=== PATIENT | female | born 1950 | race American Indian/Alaskan Native ===

== ENCOUNTER 2017-04-28 13:12 | Outpatient (CLI) | payer MEDICARE ==
[2017-04-28] MEDS ORDERED: XYLOCAINE TOPICAL 4% TP ONE ×2 (14:38→15:00)
== END 2017-04-28 13:13 | disposition home or self-care (01) ==
LOC: WOUND 13:12
PROVIDERS: ATTEND Internal Medicine
DX: I70.238 Atherosclerosis of native arteries of right leg with ulceration of other part of lower leg (principal); L97.811 Non-pressure chronic ulcer of other part of right lower leg limited to breakdown of skin; I12.9 Hypertensive chronic kidney disease with stage 1 through stage 4 chronic kidney disease, or unspecified chronic kidney disease; N18.3 Chronic kidney disease, stage 3 (moderate); I50.9 Heart failure, unspecified; D50.8 Other iron deficiency anemias; I74.3 Embolism and thrombosis of arteries of the lower extremities; K21.0 Gastro-esophageal reflux disease with esophagitis; Z86.718 Personal history of other venous thrombosis and embolism; Z72.89 Other problems related to lifestyle
CPT/HCPCS: 97606

== ENCOUNTER 2017-05-05 11:05 | Outpatient (CLI) | payer MEDICARE ==
[2017-05-05] MEDS ORDERED: XYLOCAINE TOPICAL 2% TP ONE (12:33)
[2017-05-05] MEDS ORDERED: XYLOCAINE TOPICAL 4% TP ONE (13:00)
== END 2017-05-05 11:06 | disposition home or self-care (01) ==
LOC: WOUND 11:05
PROVIDERS: ATTEND Internal Medicine
DX: I70.235 Atherosclerosis of native arteries of right leg with ulceration of other part of foot (principal); E11.622 Type 2 diabetes mellitus with other skin ulcer; L97.811 Non-pressure chronic ulcer of other part of right lower leg limited to breakdown of skin; E11.51 Type 2 diabetes mellitus with diabetic peripheral angiopathy without gangrene; E11.22 Type 2 diabetes mellitus with diabetic chronic kidney disease; I12.9 Hypertensive chronic kidney disease with stage 1 through stage 4 chronic kidney disease, or unspecified chronic kidney disease; N18.3 Chronic kidney disease, stage 3 (moderate); I50.9 Heart failure, unspecified; D50.8 Other iron deficiency anemias; I74.3 Embolism and thrombosis of arteries of the lower extremities; K21.9 Gastro-esophageal reflux disease without esophagitis; Z86.718 Personal history of other venous thrombosis and embolism; Z89.431 Acquired absence of right foot; Z87.891 Personal history of nicotine dependence
CPT/HCPCS: 97606

== ENCOUNTER 2017-05-15 06:14 | Day surgery (SDC) | payer MEDICARE ==
[~2017-05-15 06:14] MED LIST: ANCEF/STERILE WATER 2 GM/20 ML 2 GM/20 ML SYRINGE IV NR; NACL 0.9% 1000 ML 1,000 ML IV SCH
[2017-05-15] MEDS ORDERED: NACL BACTERIOSTATIC INFILTRATI ONE (06:44)
[2017-05-15 07:13] LABS: Basophils % (Auto) 0.5 % (0.0-1.8); Eosinophils # (Auto) 0.1 K/mm3 (0.0-0.4); Eosinophils % (Auto) 1.3 % (0.0-4.3); Hematocrit 37.9 % (30.3-42.9); Hemoglobin 12.4 gm/dl (10.1-14.3); Lymphocytes # (Auto) 1.9 K/mm3 (1.2-5.4); Mean Corpuscular HGB Conc 33 % (30-34); Mean Corpuscular Hemoglobin 29 pg (28-32); Mean Corpuscular Volume 89 fl (79-97); Monocytes # (Auto) 0.5 K/mm3 (0.0-0.8); Monocytes % (Auto) 6.9 % (0.0-7.3); Platelet Count 200 K/mm3 (140-440); Red Blood Count 4.26 M/mm3 (3.65-5.03); Red Cell Distribution Width 17.6 % (13.2-15.2)
--- NOTE | 2017-05-15 07:18 | Anesthesia Consultation ---
Anesthesia Consult and Med Hx Date of service: 05/15/17 - Airway Anesthetic Teeth Evaluation: Dentures, Partials ROM Head & Neck: Adequate Mental/Hyoid Distance: Adequate Mallampati Class: Class I Intubation Access Assessment: Good - Pulmonary Exam CTA: Yes - Cardiac Exam Cardiac Exam: RRR - Pre-Operative Health Status ASA Pre-Surgery Classification: ASA3 Proposed Anesthetic Plan: General - Pulmonary Hx Smoking: Yes - Cardiovascular System Hx Hypertension: Yes Hx Peripheral Vascular Disease: Yes (s/p AAA repair, right foot gangrene) - Central Nervous System Hx Psychiatric Problems: Yes - Endocrine Hx Renal Disease: Yes (stage 3 CKD) Hx Hypothyroidism: Yes - Other Systems Hx Cancer: No
--- NOTE | 2017-05-15 07:18 | Anesthesia Day of Surgery ---
Anesthesia Day of Surgery - Day of Surgery Patient Examined: Yes Patient H&P Reviewed: Yes Patient is NPO: Yes
[2017-05-15 07:23] LABS: INR 1.07 (0.87-1.13)
[2017-05-15] MEDS ORDERED: DIPRIVAN 10 MG/ML IV ONE (07:44)
[2017-05-15] MEDS ORDERED: DILAUDID ONE (07:44)
[2017-05-15 07:57] LABS: BUN/Creatinine Ratio 18; Blood Urea Nitrogen 14 mg/dL (7-17); Calcium 9.2 mg/dL (8.4-10.2); Hemolysis Index 20
[2017-05-15] MEDS ORDERED: PEPCID IV NR (08:00)
[2017-05-15] MEDS ORDERED: NEO SYNEPHRINE/NS Syringe(OR USE) IV ONE (08:00)
[2017-05-15] MEDS ORDERED: MORPHINE IV PRN (08:00)
[2017-05-15] MEDS ORDERED: ZOFRAN IV PRN (08:00)
[2017-05-15] MEDS ORDERED: PERCOCET 5/325 PO PRN (08:00)
[2017-05-15] MEDS ORDERED: XYLOCAINE 1% 20 mL ONE (08:00)
[2017-05-15] MEDS ORDERED: VERSED IV NR (08:00)
[2017-05-15] MEDS ORDERED: NACL 0.9% IR ONE (08:47)
[2017-05-15] MEDS ORDERED: ZOFRAN ONE (08:54)
[2017-05-15] MEDS ORDERED: XYLOCAINE MPF 2% ONE (08:54)
[2017-05-15] MEDS ORDERED: SANTYL TP ONE (09:04)
--- NOTE | 2017-05-15 09:30 | Post Anesthesia Evaluation ---
- Post Anesthesia Evaluation Patient Participated: Yes Airway Patent: Yes Stable Respiratory Function: Yes Temp > 96.8F: Yes Pain Manageable: Yes Adequeate Hydration: Yes Anesthesia Complications: No
--- NOTE | 2017-05-15 09:31 | Post Anesthesia Evaluation ---
- Post Anesthesia Evaluation Patient Participated: Yes Airway Patent: Yes Stable Respiratory Function: Yes Temp > 96.8F: Yes Pain Manageable: Yes Adequeate Hydration: Yes Anesthesia Complications: No
--- NOTE | 2017-05-15 09:49 | Operative Report ---
Operative Report Operative Report: Operative note: Date: 05/15/2017 Preoperative diagnosis: Right lower leg wound Postoperative diagnosis: Same. Operation: Excisional debridement of lateral calf and heel wounds. Surgeon: Ariane Bhat. Asst.: None Anesthesia: Gen. EBL: Minimal Findings: Tissue on the right lateral calf wound surrounded by a good granulation tissue. The tissue on right heel. Indications: 66-year-old lady with right sided leg wounds undergoing wound care was noted to have increased amount of eschar on left calf wound and right heel. She is status post debridement and right TMA a few weeks ago. She was explained risks, benefits and alternatives of procedure and chose to proceed, signed informed consent. Operative details: Patient was brought to the operating room and placed in supine position. right leg was prepped and draped in sterile fashion. timeout was performed. Using a 15 blade was then sharply excisional debridement performed of the lateral calf wound down to healthy tissue. The fibula was palpated and covered with some fibrinous exudate. I decided to continue that site was chemical debridement using enzyme ointment and daily dressing changes with wound care. Right heel wound appeared to be under continuous pressure. It was also excisionally debrided using a 15 blade down to healthy soft tissue. Collagenous ointment was applied and using loss of 12 and 4 x 4's wounds were dressed with Kerlix roll. Full was used to pad and prevent further pressure on the heel ulcer.
--- NOTE | 2017-05-15 09:54 | Short Stay Summary ---
Short Stay Documentation Date of service: 05/15/17 - History Principal diagnosis: right leg wounds H&P: obtained from office - Allergies and Medications Current Medications: Allergies heparin Allergy (Verified 05/14/17 15:58) Unknown Sulfa (Sulfonamide Antibiotics) Allergy (Verified 05/14/17 15:58) Unknown Home Medications Medication Instructions Recorded Confirmed Last Taken Type Valsartan [Diovan] 160 mg PO BID tablet 02/20/17 05/15/17 05/14/17 Rx amLODIPine [Norvasc] 10 mg PO QDAY tablet 02/20/17 05/15/17 05/14/17 Rx Pantoprazole [Protonix TAB] 40 mg PO QDAY #30 tablet 03/22/17 05/15/17 05/14/17 Rx oxyCODONE /ACETAMINOPHEN [Percocet 1 tab PO Q6H PRN #30 tablet 03/22/1705/14/17 Rx 5/325 mg] Furosemide [Lasix] 40 mg PO DAILY PRN 04/22/17 05/15/17 2 Weeks Ago History ~05/01/17 Gabapentin [Neurontin] 100 mg PO BID 04/22/17 05/15/17 05/14/17 History Hyoscyamine Sulfate [Hyoscyamine 0.125 mg PO Q6H PRN 04/22/17 05/15/17 05/14/17 History Rapdis 0.125 mg] Labetalol [Normodyne TAB] 100 mg PO BID 04/22/17 05/15/17 05/14/17 History NIFEdipine [Nifedipine ER] 60 mg PO DAILY 04/22/17 05/15/17 05/15/17 05:10 History Oxybutynin Chloride [Ditropan Xl] 10 mg PO QDAY 04/22/17 05/15/17 05/14/17 History Doxycycline [Vibramycin CAP] 100 mg PO BID capsule 04/25/17 05/15/17 05/14/17 Rx Amoxicillin/Potassium Clav 1 each PO TID 05/15/17 05/15/17 05/14/17 History [Augmentin 500-125 Tablet] Carvedilol [Carvedilol] 25 mg PO DAILY 05/15/17 05/15/17 05/15/17 05:10 History Active Medications Famotidine (Pepcid) 20 mg IV PREOP NR Stop: 05/15/17 21:00 Last Admin: 05/15/17 07:41 Dose: 20 mg Cefazolin Sodium (Ancef/Sterile Water 2 Gm/20 Ml) 2 gm in 20 mls @ 80 mls/hr IV PREOP NR PRN Reason: Protocol Stop: 05/15/17 23:59 Sodium Chloride (Nacl 0.9% 1000 Ml) 1,000 mls @ 42 mls/hr IV DIRECT [facility] Last Admin: 05/15/17 06:55 Dose: 42 mls/hr Midazolam HCl (Versed) 2 mg IV PREOP NR Stop: 05/15/17 23:59 Last Admin: 05/15/17 07:43 Dose: 2 mg Morphine Sulfate (Morphine) 2 mg IV Q10MIN PRN PRN Reason: Pain, Moderate (4-6) Stop: 05/15/17 15:00 Last Admin: 05/15/17 09:39 Dose: 2 mg Ondansetron HCl (Zofran) 4 mg IV ONCE PRN PRN Reason: Nausea And Vomiting Oxycodone/Acetaminophen (Percocet 5/325) 1 tab PO ONCE PRN PRN Reason: Pain, Moderate (4-6) - Brief post op/procedure progress note Date of procedure: 05/15/17 Pre-op diagnosis: rigth leg wounds Post-op diagnosis: same Procedure: sharp excisional debridement of right calf and heel wounds. Anesthesia: GETA Findings: necrotic tissues covering right leg wounds. right TMA well healed. Surgeon: TAYLA PRIETO Estimated blood loss: minimal Condition: stable - Hospital course Hospital course: uneventful - Disposition Condition at discharge: Good Disposition: DC-01 TO HOME OR SELFCARE Short Stay Discharge Plan Activity: advance as tolerated Diet: regular Wound: other (dressing changes daily with collagenase heel and calf.) Additional Instructions: Dressing changes daily with collagenase ointment to right lateral calf wound and heel wound. Provide padding under her right ankle to prevent further pressure on right heel ulcer. Ambulate as tolerated Follow up with: DINA CASTRO MD [Primary Care Provider] - 7 Days TAYLA PRIETO DO [Staff Physician] - 14 Days
[2017-05-15 12:03] VITALS: BP 138/60
== END 2017-05-15 11:09 | disposition home or self-care (01) ==
LOC: OR 06:14
PROVIDERS: ATTEND Surgery Vascular Surgery
DX: I70.261 Atherosclerosis of native arteries of extremities with gangrene, right leg (principal); I70.234 Atherosclerosis of native arteries of right leg with ulceration of heel and midfoot; I13.0 Hypertensive heart and chronic kidney disease with heart failure and stage 1 through stage 4 chronic kidney disease, or unspecified chronic kidney disease; N18.3 Chronic kidney disease, stage 3 (moderate); I50.9 Heart failure, unspecified; E03.9 Hypothyroidism, unspecified; B19.20 Unspecified viral hepatitis C without hepatic coma; F32.9 Major depressive disorder, single episode, unspecified; F17.200 Nicotine dependence, unspecified, uncomplicated; Z79.899 Other long term (current) drug therapy; Z98.84 Bariatric surgery status; Z98.890 Other specified postprocedural states; Z98.51 Tubal ligation status; Z88.8 Allergy status to other drugs, medicaments and biological substances; Z88.2 Allergy status to sulfonamides; Z86.718 Personal history of other venous thrombosis and embolism; Z79.01 Long term (current) use of anticoagulants
CPT/HCPCS: 11043; 11046; 36415; 80048; 85025; 85610; J0690; J1170; J2250; J2270; J2370; J2405; J2704; J7030

== ENCOUNTER 2017-06-05 10:49 | Outpatient (CLI) | payer MEDICARE ==
[2017-06-05] MEDS ORDERED: XYLOCAINE TOPICAL 4% TP ONE ×2 (11:30→11:34)
== END 2017-06-05 10:50 | disposition home or self-care (01) ==
LOC: WOUND 10:49
PROVIDERS: ATTEND Nurse Practitioner
DX: L97.811 Non-pressure chronic ulcer of other part of right lower leg limited to breakdown of skin (principal); L89.890 Pressure ulcer of other site, unstageable; I74.3 Embolism and thrombosis of arteries of the lower extremities; I70.261 Atherosclerosis of native arteries of extremities with gangrene, right leg; S91.311D Laceration without foreign body, right foot, subsequent encounter; K21.9 Gastro-esophageal reflux disease without esophagitis; I13.0 Hypertensive heart and chronic kidney disease with heart failure and stage 1 through stage 4 chronic kidney disease, or unspecified chronic kidney disease; I50.9 Heart failure, unspecified; N18.3 Chronic kidney disease, stage 3 (moderate); I71.4 Abdominal aortic aneurysm, without rupture; Z89.421 Acquired absence of other right toe(s); Z86.718 Personal history of other venous thrombosis and embolism; Z90.49 Acquired absence of other specified parts of digestive tract; F17.200 Nicotine dependence, unspecified, uncomplicated; X58.XXXD Exposure to other specified factors, subsequent encounter; Z72.89 Other problems related to lifestyle
CPT/HCPCS: 97606

== ENCOUNTER 2017-06-12 11:10 | Outpatient (CLI) | payer MEDICARE ==
[2017-06-12] MEDS ORDERED: XYLOCAINE TOPICAL 4% TP ONE (12:36)
== END 2017-06-12 11:11 | disposition home or self-care (01) ==
LOC: WOUND 11:10
PROVIDERS: ATTEND Nurse Practitioner
DX: I70.238 Atherosclerosis of native arteries of right leg with ulceration of other part of lower leg (principal); L97.811 Non-pressure chronic ulcer of other part of right lower leg limited to breakdown of skin; L89.610 Pressure ulcer of right heel, unstageable; S91.311D Laceration without foreign body, right foot, subsequent encounter; I13.0 Hypertensive heart and chronic kidney disease with heart failure and stage 1 through stage 4 chronic kidney disease, or unspecified chronic kidney disease; I50.9 Heart failure, unspecified; N18.3 Chronic kidney disease, stage 3 (moderate); K21.0 Gastro-esophageal reflux disease with esophagitis; F17.200 Nicotine dependence, unspecified, uncomplicated; Z86.718 Personal history of other venous thrombosis and embolism; Z89.421 Acquired absence of other right toe(s); Z90.49 Acquired absence of other specified parts of digestive tract; Z72.89 Other problems related to lifestyle; X58.XXXD Exposure to other specified factors, subsequent encounter
CPT/HCPCS: 97606

== ENCOUNTER 2017-06-19 11:04 | Outpatient (CLI) | payer MEDICARE ==
[2017-06-19] MEDS ORDERED: XYLOCAINE TOPICAL 4% TP ONE ×2 (11:57→12:08)
== END 2017-06-19 11:05 | disposition home or self-care (01) ==
LOC: WOUND 11:04
PROVIDERS: ATTEND Surgery
DX: I70.238 Atherosclerosis of native arteries of right leg with ulceration of other part of lower leg (principal); L97.811 Non-pressure chronic ulcer of other part of right lower leg limited to breakdown of skin; L89.610 Pressure ulcer of right heel, unstageable; S91.311D Laceration without foreign body, right foot, subsequent encounter; I13.0 Hypertensive heart and chronic kidney disease with heart failure and stage 1 through stage 4 chronic kidney disease, or unspecified chronic kidney disease; I50.9 Heart failure, unspecified; N18.3 Chronic kidney disease, stage 3 (moderate); K21.0 Gastro-esophageal reflux disease with esophagitis; F17.200 Nicotine dependence, unspecified, uncomplicated; Z90.49 Acquired absence of other specified parts of digestive tract; Z89.421 Acquired absence of other right toe(s); Z86.718 Personal history of other venous thrombosis and embolism; Z72.89 Other problems related to lifestyle; X58.XXXD Exposure to other specified factors, subsequent encounter
CPT/HCPCS: 97606; G0463

== ENCOUNTER 2017-06-26 10:43 | Outpatient (CLI) | payer MEDICARE ==
[2017-06-26] MEDS ORDERED: XYLOCAINE TOPICAL 4% TP ONE ×2 (11:00→11:17)
== END 2017-06-26 10:44 | disposition home or self-care (01) ==
LOC: WOUND 10:43
PROVIDERS: ATTEND Nurse Practitioner
DX: I70.261 Atherosclerosis of native arteries of extremities with gangrene, right leg (principal); L97.811 Non-pressure chronic ulcer of other part of right lower leg limited to breakdown of skin; L89.610 Pressure ulcer of right heel, unstageable; S91.311D Laceration without foreign body, right foot, subsequent encounter; I13.0 Hypertensive heart and chronic kidney disease with heart failure and stage 1 through stage 4 chronic kidney disease, or unspecified chronic kidney disease; I50.9 Heart failure, unspecified; N18.3 Chronic kidney disease, stage 3 (moderate); K21.0 Gastro-esophageal reflux disease with esophagitis; I74.3 Embolism and thrombosis of arteries of the lower extremities; F17.200 Nicotine dependence, unspecified, uncomplicated; Z89.421 Acquired absence of other right toe(s); Z86.718 Personal history of other venous thrombosis and embolism; Z90.49 Acquired absence of other specified parts of digestive tract; Z72.89 Other problems related to lifestyle; X58.XXXD Exposure to other specified factors, subsequent encounter
CPT/HCPCS: 97606

== ENCOUNTER 2017-07-03 11:07 | Outpatient (CLI) | payer MEDICARE ==
[2017-07-03] MEDS ORDERED: XYLOCAINE TOPICAL 4% TP ONE (11:20)
[2017-07-03] MEDS ORDERED: NACL 0.9% IR PRN (11:20)
== END 2017-07-03 11:08 | disposition home or self-care (01) ==
LOC: WOUND 11:07
PROVIDERS: ATTEND Nurse Practitioner
DX: T87.89 Other complications of amputation stump (principal); I70.238 Atherosclerosis of native arteries of right leg with ulceration of other part of lower leg; L97.811 Non-pressure chronic ulcer of other part of right lower leg limited to breakdown of skin; L89.890 Pressure ulcer of other site, unstageable; D50.8 Other iron deficiency anemias; I13.0 Hypertensive heart and chronic kidney disease with heart failure and stage 1 through stage 4 chronic kidney disease, or unspecified chronic kidney disease; N18.9 Chronic kidney disease, unspecified; I73.9 Peripheral vascular disease, unspecified; K21.9 Gastro-esophageal reflux disease without esophagitis; F17.200 Nicotine dependence, unspecified, uncomplicated; Z86.718 Personal history of other venous thrombosis and embolism; Z72.89 Other problems related to lifestyle; Y83.5 Amputation of limb(s) as the cause of abnormal reaction of the patient, or of later complication, without mention of misadventure at the time of the procedure
CPT/HCPCS: 99214; G0463

== ENCOUNTER 2018-01-15 14:30 | Inpatient (IN) | payer MEDICARE ==
[2018-01-15] MEDS ORDERED: LASIX IV ONE (17:15)
[2018-01-15 17:42] LABS: Basophils # (Auto) 0.1 K/mm3 (0.0-0.1); Basophils % (Auto) 0.6 % (0.0-1.8); Eosinophils # (Auto) 0.2 K/mm3 (0.0-0.4); Eosinophils % (Auto) 1.2 % (0.0-4.3); Hematocrit 38.6 % (30.3-42.9); Hemoglobin 13.2 gm/dl (10.1-14.3); Lymphocytes # (Auto) 2.2 K/mm3 (1.2-5.4); Lymphocytes % (Auto) 16.7 % (13.4-35.0); Mean Corpuscular HGB Conc 34 % (30-34); Mean Corpuscular Hemoglobin 33 pg (28-32); Mean Corpuscular Volume 97 fl (79-97); Monocytes # (Auto) 0.5 K/mm3 (0.0-0.8); Platelet Count 149 K/mm3 (140-440); Red Blood Count 3.99 M/mm3 (3.65-5.03)
[2018-01-15 18:09] LABS: Alanine Aminotransferase 76 units/L (7-56); Albumin 3.5 g/dL (3.9-5); BUN/Creatinine Ratio 30; Blood Urea Nitrogen 30 mg/dL (7-17); Calcium 8.8 mg/dL (8.4-10.2); Hemolysis Index 6
[2018-01-15] MEDS ORDERED: BABY ASPIRIN PO ONE (19:22)
--- NOTE | 2018-01-15 19:22 | Emergency Department Report ---
HPI - General Chief Complaint: Dizziness Time Seen by Provider: 01/15/18 16:52 - HPI HPI: The patient's is a 67-year-old female whom presents for evaluation of chest pain. The patient reports 1 week of midsternal pounding in quality chest pain on and off, mild in severity, exacerbated with deep breaths, and associated with dyspnea. She also has experienced episodes of dizziness. The patient denies fever, neck pain, parasthesias, dyspnea, cough, hemoptysis, syncope, unilateral leg swelling, calf muscle pain. Patient also denies cocaine or other stimulant use, history of DVT or PE, recent immobilization, or history of cancer. ED Past Medical Hx - Past Medical History Previous Medical History?: Yes Hx Hypertension: Yes Hx Congestive Heart Failure: Yes Hx Deep Vein Thrombosis: No Hx Renal Disease: Yes (CKD, stage 3) Additional medical history: h/o C-DIFF, RT BKA 2018,anemia with blood transfusion - Surgical History Past Surgical History?: Yes Hx Pacemaker: No Hx Internal Defibrillator: No Hx Cholecystectomy: Yes Hx Appendectomy: Yes Additional Surgical History: Endovascular aortic stent graft, femoral femoral bypass, IVC filter - Social History Smoking Status: Current Every Day Smoker - Medications Home Medications: Home Medications Medication Instructions Recorded Confirmed Last Taken Type Pantoprazole [Protonix TAB] 40 mg PO QDAY #30 tablet 03/22/17 12/03/17 12/02/17 Rx Hyoscyamine Sulfate [Hyoscyamine 0.125 mg PO Q6H PRN 04/22/17 12/03/17 12/02/17 History Rapdis 0.125 mg] Oxybutynin Chloride [Ditropan Xl] 10 mg PO DAILY 04/22/17 12/03/17 12/02/17 History Ferrous Sulfate [Feosol 325 MG tab] 325 mg PO BID tablet 07/18/17 12/03/17 Rx Hydrochlorothiazide [HCTZ] 12.5 mg PO QDAY capsule 07/18/17 12/03/17 Unknown Rx Valsartan [Diovan] 160 mg PO QDAY tablet 07/18/17 12/03/17 12/02/17 Rx Carvedilol [Coreg] 12.5 mg PO BID #60 tablet 12/05/17 Unknown Rx Oxycodone HCl/Acetaminophen 1 each PO Q6HR PRN #15 tablet 12/05/17 Unknown Rx [Percocet 10/325 mg] Polyethylene Glycol 3350 [Miralax 17 gm PO BID PRN #60 powd.pack 12/05/17 Unknown Rx 3350] Sennosides Tab [Senokot] 8.6 mg PO Q12HR #60 tablet 12/05/17 Unknown Rx ED Review of Systems ROS: Stated complaint: LIGHT HEAD SHORT OF BREATH Other details as noted in HPI Constitutional: denies: fever ENT: denies: throat or neck pain Respiratory: denies: cough reports shortness of breath Cardiovascular: reports chest pain Endocrine: denies unexplained weight loss or gain Gastrointestinal: denies: abdominal pain, nausea Genitourinary: denies: dysuria Musculoskeletal: denies: leg swelling Skin: denies: rash Neurological: denies: headache Hematological/Lymphatic: denies: easy bleeding or easy bruising Psych: denies sadness or hopelessness Physical Exam - Physical Exam Vital Signs: Vital Signs 01/15/18 01/15/18 01/15/18 14:52 16:30 17:00 Temperature 98.1 F Pulse Rate 89 82 81 Respiratory 16 10 L 18 Rate Blood Pressure 118/62 130/72 137/72 O2 Sat by Pulse 97 Oximetry Physical Exam: General: well-nourished, well-developed, no acute distress Head: Normocephalic, atraumatic Eyes: normal sclera ENT: Mucous membranes are pink and moist Neck: trachea midline, neck supple, No neck stiffness, no cervical adenopathy Respiratory: Breath sounds equal bilaterally, no wheezing, rales, or rhonchi Cardio: S1 and S2 present, no murmurs, rubs, gallops, capillary refill is brisk Abdomen: Normoactive bowel sounds, soft abdomen, no rigidity, no guarding or rebound tenderness Chest WALL/Back: No tenderness to palpation of the chest wall, no CVA tenderness with percussion Musc: 1+ pitting edema of the leg Skin: No rash Neuro: no facial drooping, normal speech Psych: Normal affect ED Course Vital Signs 01/15/18 01/15/18 01/15/18 14:52 16:30 17:00 Temperature 98.1 F Pulse Rate 89 82 81 Respiratory 16 10 L 18 Rate Blood Pressure 118/62 130/72 137/72 O2 Sat by Pulse 97 Oximetry ED Medical Decision Making - Lab Data Result diagrams: 01/15/18 17:22 01/15/18 17:22 - Medical Decision Making The patient was seen and examined by myself. The patient is placed on a radiographer cardiac catheterization and continuous pulse ox. On initial evaluation, the patient was found to be in no distress. EKG was negative for findings suggestive of acute cardiac infarct. The patient is given pain medicine. Labs and imaging are obtained. Chest x-ray revealed a right lower lobe linear atelectasis. Lab results revealed elevated BNP of greater than 1000, and mild leukocytosis, there is a 30 , and otherwise labs were non-revealing. The patient was reevaluated and reported that their symptoms were improved. As the patient has chest pain and risk factors for development of acute coronary event, the patient will be admitted for close cardiopulmonary monitoring, serial troponins, and evaluation by cardiology. The physician on-call was contacted. They presented to the emergency department and evaluated the patient. They agreed to admit the patient. The ED admit order was placed. The patient was admitted in guarded condition. Critical care attestation.: If time is entered above; I have spent that time in minutes in the direct care of this critically ill patient, excluding procedure time. ED Disposition Clinical Impression: Acute chest pain, Elevated LFTs, Elevated troponin I level CHF (congestive heart failure) Qualifiers: Heart failure type: systolic Heart failure chronicity: acute on chronic Qualified Code(s): I50.23 - Acute on chronic systolic (congestive) heart failure Disposition: OP ADMIT IP TO THIS HOSP Is pt being admited?: Yes Does the pt Need Aspirin: Yes Condition: Fair Time of Disposition: 19:22
--- NOTE | 2018-01-15 19:31 | XRay Report ---
FINAL REPORT EXAM: XR CHEST 1V AP HISTORY: chest pain TECHNIQUE: AP portable view of the chest PRIORS: CXR 02/01/2017 FINDINGS: Lines, tubes, and devices: N/A Lungs and pleura: Trachea is normal in position. Minimal increased markings in the right base are noted suggesting mild atelectasis. Lungs are otherwise clear of consolidation, pleural effusion, vascular congestion, or pneumothorax. Cardiomediastinal silhouette: Cardiac and mediastinal silhouettes are stable. Calcification of the aortic arch is again noted. Other: Bony structures are intact. IMPRESSION: Minimal linear atelectasis in the right base is new
[2018-01-15] MEDS ORDERED: SODIUM CHLORIDE FLUSH SYRINGE 10 ML IV PRN (22:45)
[2018-01-15] MEDS ORDERED: TYLENOL PO PRN (22:45)
[2018-01-15] MEDS ORDERED: ZOFRAN IV PRN (22:45)
[2018-01-15] MEDS ORDERED: MORPHINE IV PRN (22:45)
[2018-01-15] MEDS ORDERED: PERCOCET 5/325 PO PRN (22:45)
--- NOTE | 2018-01-15 22:45 | History and Physical Report ---
History of Present Illness Date of examination: 01/15/18 Date of admission: 01/15/18 19:22 Medications and Allergies Allergies Allergy/AdvReac Type Severity Reaction Status Date / Time heparin Allergy Unknown Verified 05/14/17 15:58 Sulfa (Sulfonamide Allergy Unknown Verified 05/14/17 15:58 Antibiotics) Home Medications Medication Instructions Recorded Confirmed Last Taken Type Pantoprazole [Protonix TAB] 40 mg PO QDAY #30 tablet 03/22/17 12/03/17 12/02/17 Rx Hyoscyamine Sulfate [Hyoscyamine 0.125 mg PO Q6H PRN 04/22/17 12/03/17 12/02/17 History Rapdis 0.125 mg] Oxybutynin Chloride [Ditropan Xl] 10 mg PO DAILY 04/22/17 12/03/17 12/02/17 History Ferrous Sulfate [Feosol 325 MG tab] 325 mg PO BID tablet 07/18/17 12/03/17 Rx Hydrochlorothiazide [HCTZ] 12.5 mg PO QDAY capsule 07/18/17 12/03/17 Unknown Rx Valsartan [Diovan] 160 mg PO QDAY tablet 07/18/17 12/03/17 12/02/17 Rx Carvedilol [Coreg] 12.5 mg PO BID #60 tablet 12/05/17 Unknown Rx Oxycodone HCl/Acetaminophen 1 each PO Q6HR PRN #15 tablet 12/05/17 Unknown Rx [Percocet 10/325 mg] Polyethylene Glycol 3350 [Miralax 17 gm PO BID PRN #60 powd.pack 12/05/17 Unknown Rx 3350] Sennosides Tab [Senokot] 8.6 mg PO Q12HR #60 tablet 12/05/17 Unknown Rx Exam - Constitutional Vitals: Temp Pulse Resp BP Pulse Ox 98.5 F 89 20 145/76 95 01/15/18 21:39 01/15/18 21:39 01/15/18 21:39 01/15/18 21:39 01/15/18 21:39 Results - Labs CBC & Chem 7: 01/15/18 17:22 01/15/18 17:22 Labs: Laboratory Last Values WBC 13.0 K/mm3 (4.5-11.0) H 01/15/18 17:22 RBC 3.99 M/mm3 (3.65-5.03) 01/15/18 17:22 Hgb 13.2 gm/dl (10.1-14.3) 01/15/18 17:22 Hct 38.6 % (30.3-42.9) 01/15/18 17:22 MCV 97 fl (79-97) 01/15/18 17:22 MCH 33 pg (28-32) H 01/15/18 17:22 MCHC 34 % (30-34) 01/15/18 17:22 RDW 16.0 % (13.2-15.2) H 01/15/18 17:22 Plt Count 149 K/mm3 (140-440) 01/15/18 17:22 Lymph % (Auto) 16.7 % (13.4-35.0) 01/15/18 17:22 [place] % (Auto) 4.0 % (0.0-7.3) 01/15/18 17:22 Eos % (Auto) 1.2 % (0.0-4.3) 01/15/18 17:22 Baso % (Auto) 0.6 % (0.0-1.8) 01/15/18 17:22 Lymph # 2.2 K/mm3 (1.2-5.4) 01/15/18 17:22 [place] # 0.5 K/mm3 (0.0-0.8) 01/15/18 17:22 Eos # 0.2 K/mm3 (0.0-0.4) 01/15/18 17:22 Baso # 0.1 K/mm3 (0.0-0.1) 01/15/18 17:22 Seg Neutrophils % 77.5 % (40.0-70.0) H 01/15/18 17:22 Seg Neutrophils # 10.0 K/mm3 (1.8-7.7) H 01/15/18 17:22 Sodium 144 mmol/L (137-145) 01/15/18 17:22 Potassium 3.4 mmol/L (3.6-5.0) L 01/15/18 17:22 Chloride 113.6 mmol/L (98-107) H 01/15/18 17:22 Carbon Dioxide 14 mmol/L (22-30) L 01/15/18 17:22 Anion Gap 20 mmol/L 01/15/18 17:22 BUN 30 mg/dL (7-17) H 01/15/18 17:22 Creatinine 1.0 mg/dL (0.7-1.2) 01/15/18 17:22 Estimated GFR > 60 ml/min 01/15/18 17:22 BUN/Creatinine Ratio 30 % 01/15/18 17:22 Glucose 104 mg/dL (65-100) H 01/15/18 17:22 Calcium 8.8 mg/dL (8.4-10.2) 01/15/18 17:22 Total Bilirubin 0.20 mg/dL (0.1-1.2) 01/15/18 17:22 AST 70 units/L (5-40) H 01/15/18 17:22 ALT 76 units/L (7-56) H 01/15/18 17:22 Alkaline Phosphatase 170 units/L (35-129) H 01/15/18 17:22 NT-Pro-B Natriuret Pep 1840 pg/mL (0-900) H 01/15/18 17:22 Total Protein 7.4 g/dL (6.3-8.2) 01/15/18 17:22 Albumin 3.5 g/dL (3.9-5) L 01/15/18 17:22 Albumin/Globulin Ratio 0.9 % 01/15/18 17:22
[2018-01-15] MEDS ORDERED: NON-FORMULARY (Oxycodone Hcl/Acetaminophen [Percocet 10/325 Mg] 1 EACH) PO PRN (22:50)
[2018-01-15] MEDS ORDERED: MIRALAX 3350 PO PRN (22:50)
[2018-01-15] MEDS ORDERED: NON-FORMULARY (Hyoscyamine Sulfate [Hyoscyamine Rapdis 0.125 Mg] 0.125 MG) PO PRN (22:50)
[2018-01-15] MEDS ORDERED: LEVSIN SL SL PRN (22:56)
[2018-01-15] MEDS ORDERED: NACL 0.9% 1000 ML 1,000 ML IV SCH (23:00)
[2018-01-15] MEDS: COREG PO SCH (23:16)
[2018-01-15] MEDS: PERCOCET 5/325 PO PRN (23:17)
[2018-01-15] MEDS: ROXICODONE PO PRN (23:18)
[2018-01-16 05:50] LABS: Basophils % (Auto) 0.3 % (0.0-1.8); Eosinophils # (Auto) 0.1 K/mm3 (0.0-0.4); Eosinophils % (Auto) 1.2 % (0.0-4.3); Hematocrit 36.8 % (30.3-42.9); Hemoglobin 12.3 gm/dl (10.1-14.3); Lymphocytes # (Auto) 1.9 K/mm3 (1.2-5.4); Lymphocytes % (Auto) 21.6 % (13.4-35.0); Mean Corpuscular HGB Conc 33 % (30-34); Mean Corpuscular Hemoglobin 32 pg (28-32); Mean Corpuscular Volume 97 fl (79-97); Monocytes # (Auto) 0.5 K/mm3 (0.0-0.8); Monocytes % (Auto) 5.5 % (0.0-7.3); Platelet Count 140 K/mm3 (140-440); Red Blood Count 3.79 M/mm3 (3.65-5.03); Red Cell Distribution Width 15.8 % (13.2-15.2)
[2018-01-16 06:31] LABS: Alanine Aminotransferase 311 units/L (7-56); Albumin 3.5 g/dL (3.9-5); BUN/Creatinine Ratio 28; Blood Urea Nitrogen 28 mg/dL (7-17); Calcium 8.8 mg/dL (8.4-10.2); Hemolysis Index 2
--- NOTE | 2018-01-16 07:14 | Event Note ---
Date: 01/15/18 See H/p in reports
[2018-01-16 07:35] LABS: Chol/HDL Ratio 2.89 %
[2018-01-16] MEDS ORDERED: K-DUR PO NR (07:42)
[2018-01-16] MEDS ORDERED: NACL 0.9% 1000 ML 1,000 ML IV SCH (08:00)
[2018-01-16] MEDS ORDERED: LEXISCAN IV ONE ×2 (09:51→09:56)
[2018-01-16] MEDS ORDERED: NON-FORMULARY (Oxybutynin Chloride [Ditropan Xl] 10 MG) PO SCH (10:00)
[2018-01-16] MEDS ORDERED: PEPCID IV SCH (10:00)
--- NOTE | 2018-01-16 11:09 | History and Physical Report ---
CHIEF COMPLAINT: Left-sided chest pain for 1 day. HISTORY OF PRESENT ILLNESS: The patient is a 67-year-old black female who comes in for dizziness and left-sided chest pain of one day duration. Chest pain is dull in character. No diaphoresis, no palpitations, no shortness of breath. No recent travel. PAST MEDICAL HISTORY: Significant for hypertension, congestive heart failure, chronic kidney disease, right above-knee amputation for peripheral vascular disease secondary to smoking, anemia. PAST SURGICAL HISTORY: Cholecystectomy, appendectomy, endovascular aortic stent graft, femoral-femoral bypass, IVC filter and right above-knee amputation. SOCIAL HISTORY: Smokes about a pack a day. CURRENT MEDICATIONS: On chart. REVIEW OF SYSTEMS: Significant for chest pain and dizziness. Otherwise, 14-point review of systems negative. PHYSICAL EXAMINATION: GENERAL: Elderly female, cooperative during examination. VITAL SIGNS: Blood pressure is 145/71, temperature is 97.7, pulse is 62, respirations 18. HEENT: Unremarkable. Pupils equal and reactive. NECK: Supple, no lymphadenopathy, no thyromegaly. LUNGS: Clear to auscultation and percussion. Good air entry. CARDIOVASCULAR: S1, S2 heard. No gallop, no murmur, no rub. Apical impulse in left fifth intercostal space and midclavicular line. ABDOMEN: Soft and benign. No hepatosplenomegaly. No guarding, no rigidity. Hernial orifices are normal. EXTREMITIES: Right above-knee amputation. Pulses are weak in the left lower extremity. SKIN: Normal. CENTRAL NERVOUS SYSTEM: Alert and oriented x 4, nonfocal exam. LABORATORY DATA: Significant for white count of 13,000, H and H of 13.2 and 38.6, platelet count of 149,000. Sodium is 144, potassium is 3.4, BUN and creatinine is 30 and 1.0. AST and ALT are slightly high 70 and 76. BNP is 1840. Lipid profile normal. ASSESSMENT AND PLAN: 1. Chest pain, rule out myocardial infarction, chest pain protocol. 2. Hypokalemia, supplemented. 3. Dehydration, IV fluids. 4. Transaminitis. Acute hepatitis profile ordered. 5. Elevated BNP, possible CHF. Echocardiogram ordered. 6. Gastroesophageal reflux disease. Continue Protonix. 7. Hypertension. Continue Coreg and valsartan. 8. Anemia. Continue iron supplements. 9. Deep venous thrombosis prophylaxis, Lovenox 40 mg subcutaneous daily. [facility]# [id number] PHIL/MEHDI
[2018-01-16] MEDS: DIOVAN PO SCH (12:16)
[2018-01-16] MEDS: HCTZ PO SCH (12:17)
[2018-01-16] MEDS: DITROPAN XL PO SCH (12:17)
[2018-01-16] MEDS: SODIUM CHLORIDE FLUSH SYRINGE 10 ML IV SCH ×2 (12:18→22:02)
[2018-01-16] MEDS: COREG PO SCH ×2 (12:18→22:01)
[2018-01-16] MEDS: PROTONIX PO SCH (12:18)
[2018-01-16] MEDS: SENOKOT PO SCH ×2 (12:18→22:02)
[2018-01-16] MEDS ORDERED: APRESOLINE IV PRN (12:58)
[2018-01-16] MEDS: ROXICODONE PO PRN ×2 (14:15→19:46)
--- NOTE | 2018-01-16 14:42 | Consultation ---
History of Present Illness Consult date: 01/16/18 Consult reason: shortness of breath, other (Dizziness) History of present illness: This is a 67 year old woman with multiple medical problems. There is no history of coronary artery disease. Patient presented to this hospital with complaints of shortness of breath and dizziness, intermittent for several weeks. There were no reports of chest pain or palpitations. There were no reports of syncope. Initial workup revealed laboratory abnormality of liver transaminases. Chest x-ray shows no evidence of interstitial edema. She was admitted for further evaluation and underwent a persantine thallium test and echocardiogram ordered by the primary team. Medications and Allergies Allergies Allergy/AdvReac Type Severity Reaction Status Date / Time heparin Allergy Unknown Verified 05/14/17 15:58 Sulfa (Sulfonamide Allergy Unknown Verified 05/14/17 15:58 Antibiotics) Home Medications Medication Instructions Recorded Confirmed Last Taken Type Pantoprazole [Protonix TAB] 40 mg PO QDAY #30 tablet 03/22/17 12/03/17 12/02/17 Rx Hyoscyamine Sulfate [Hyoscyamine 0.125 mg PO Q6H PRN 04/22/17 12/03/17 12/02/17 History Rapdis 0.125 mg] Oxybutynin Chloride [Ditropan Xl] 10 mg PO DAILY 04/22/17 12/03/17 12/02/17 History Ferrous Sulfate [Feosol 325 MG tab] 325 mg PO BID tablet 07/18/17 12/03/17 Rx Hydrochlorothiazide [HCTZ] 12.5 mg PO QDAY capsule 07/18/17 12/03/17 Unknown Rx Valsartan [Diovan] 160 mg PO QDAY tablet 07/18/17 12/03/17 12/02/17 Rx Carvedilol [Coreg] 12.5 mg PO BID #60 tablet 12/05/17 Unknown Rx Oxycodone HCl/Acetaminophen 1 each PO Q6HR PRN #15 tablet 12/05/17 Unknown Rx [Percocet 10/325 mg] Polyethylene Glycol 3350 [Miralax 17 gm PO BID PRN #60 powd.pack 12/05/17 Unknown Rx 3350] Sennosides Tab [Senokot] 8.6 mg PO Q12HR #60 tablet 12/05/17 Unknown Rx Active Meds: Active Medications Acetaminophen (Tylenol) 650 mg PO Q4H PRN PRN Reason: Pain MILD(1-3)/Fever >100.5/[place] Carvedilol (Coreg) 12.5 mg PO BID [facility] Last Admin: 01/16/18 12:18 Dose: 12.5 mg Hydralazine HCl (Apresoline) 20 mg IV Q4H PRN PRN Reason: Hypertension Hydrochlorothiazide (Hctz) 12.5 mg PO QDAY [facility] Last Admin: 01/16/18 12:17 Dose: 12.5 mg Hyoscyamine (Levsin Sl) 0.125 mg SL Q6H PRN PRN Reason: Spasms Sodium Chloride (Nacl 0.9% 1000 Ml) 1,000 mls @ 75 mls/hr IV DIRECT [facility] Morphine Sulfate (Morphine) 2 mg IV Q4H PRN PRN Reason: Pain, Moderate (4-6) Ondansetron HCl (Zofran) 4 mg IV Q8H PRN PRN Reason: Nausea And Vomiting Oxybutynin Chloride (Ditropan Xl) 10 mg PO QDAY [facility] Last Admin: 01/16/18 12:17 Dose: 10 mg Oxycodone HCl (Roxicodone) 5 mg PO Q6H PRN PRN Reason: Pain, Moderate (4-6) Last Admin: 01/16/18 14:15 Dose: 5 mg Oxycodone/Acetaminophen (Percocet 5/325) 1 tab PO Q6H PRN PRN Reason: Pain, Moderate (4-6) Last Admin: 01/15/18 23:17 Dose: 1 tab Pantoprazole Sodium (Protonix) 40 mg PO QDAY [facility] Last Admin: 01/16/18 12:18 Dose: 40 mg Polyethylene Glycol (Miralax 3350) 17 gm PO BID PRN PRN Reason: Constipation Senna (Senokot) 8.6 mg PO Q12HR [facility] Last Admin: 01/16/18 12:18 Dose: Not Given Sodium Chloride (Sodium Chloride Flush Syringe 10 Ml) 10 ml IV BID [facility] Last Admin: 01/16/18 12:18 Dose: 10 ml Sodium Chloride (Sodium Chloride Flush Syringe 10 Ml) 10 ml IV PRN PRN PRN Reason: LINE FLUSH Valsartan (Diovan) 160 mg PO QDAY [facility] Last Admin: 01/16/18 12:16 Dose: 160 mg Physical Examination Vital Signs Temp Pulse Resp BP Pulse Ox 98.1 F 89 16 118/62 97 01/15/18 14:52 01/15/18 14:52 01/15/18 14:52 01/15/18 14:52 01/15/18 14:52 General appearance: no acute distress HEENT: Positive: PERRL Cardiac: Positive: Reg Rate and Rhythm Lungs: Positive: Decreased Breath Sounds Results 01/16/18 05:19 01/16/18 05:19 Cardiac Enzymes 01/15/18 01/16/18 Range/Units 17:22 05:19 AST 70 H 992 H (5-40) units/L Lipids 01/16/18 Range/Units 05:19 Triglycerides 100 (2-149) mg/dL Cholesterol 142 (50-199) mg/dL HDL Cholesterol 49 (40-59) mg/dL Cholesterol/HDL Ratio 2.89 % CBC 01/15/18 01/16/18 Range/Units 17:22 05:19 WBC 13.0 H 8.8 (4.5-11.0) K/mm3 RBC 3.99 3.79 (3.65-5.03) M/mm3 Hgb 13.2 12.3 (10.1-14.3) gm/dl Hct 38.6 36.8 (30.3-42.9) % Plt Count 149 140 (140-440) K/mm3 Lymph # 2.2 1.9 (1.2-5.4) K/mm3 [place] # 0.5 0.5 (0.0-0.8) K/mm3 Eos # 0.2 0.1 (0.0-0.4) K/mm3 Baso # 0.1 0.0 (0.0-0.1) K/mm3 Comprehensive Metabolic Panel 01/15/18 01/16/18 Range/Units 17:22 05:19 Sodium 144 139 (137-145) mmol/L Potassium 3.4 L 3.5 L (3.6-5.0) mmol/L Chloride 113.6 H 109.5 H (98-107) mmol/L Carbon Dioxide 14 L 16 L (22-30) mmol/L BUN 30 H 28 H (7-17) mg/dL Creatinine 1.0 1.0 (0.7-1.2) mg/dL Glucose 104 H 87 (65-100) mg/dL Calcium 8.8 8.8 (8.4-10.2) mg/dL AST 70 H 992 H (5-40) units/L ALT 76 H 311 H (7-56) units/L Alkaline Phosphatase 170 H 252 H (35-129) units/L Total Protein 7.4 6.9 (6.3-8.2) g/dL Albumin 3.5 L 3.5 L (3.9-5) g/dL Assessment and Plan Shortness of breath normal persantine thallium stress test. LVEF 40-45% by echocardiogram. Hx of Aortic aneurysm rupture s/p endovascular repair of aortic psedoaneurysm Hypertension History of DVT s/p IVC filter PVD s/p right AKA History of gastric bypass surgery Elevated troponin, chronic Tobacco abuse No further cardiac workup indicated. Medical therapy and risk factor modification.
--- NOTE | 2018-01-16 15:29 | Progress Note ---
Assessment and Plan Assessment and plan: 67-year-old female with past medical history significant for aortic aneurysm rupture status post endovascular repair, hypertension, DVT status post IVC filter, peripheral vascular disease presented to the emergency department his complains of shortness of breath, dizziness Shortness of breath -Elevated cardiac enzymes which is chronic, cardiac stress test done and negative for acute ischemia -We'll do CTA chest -Cardiology consulted and recommended no further cardiac workup Dizziness - We will do CT head Resume all medications Disposition - Possible discharge tomorrow History Interval history: Patient was seen and evaluated this morning, patient still has some SOB and dizziness. Hospitalist Physical - Physical exam Narrative exam: Not in cardiopulmonary distress. The patient appeared well nourished and normally developed. Vital signs as documented. Head exam is unremarkable. No scleral icterus . Neck is without jugular venous distension, thyromegaly, or carotid bruits. Lungs are clear to auscultation. Cardiac exam reveals regular rate and Rhythm. Abdominal exam reveals normal bowel sounds, no masses, no organomegaly and no aortic enlargement. Extremities right AKA. SOUND CONTROLLER: Alert and oriented 3. No focal weakness. - Constitutional Vitals: Temp Pulse Resp BP Pulse Ox 98.6 F 70 18 200/86 98 01/16/18 07:19 01/16/18 12:00 01/16/18 07:19 01/16/18 10:14 01/16/18 07:19 General appearance: Present: no acute distress Results - Labs CBC & Chem 7: 01/16/18 05:19 01/16/18 05:19 Labs: Laboratory Last Values WBC 8.8 K/mm3 (4.5-11.0) 01/16/18 05:19 RBC 3.79 M/mm3 (3.65-5.03) 01/16/18 05:19 Hgb 12.3 gm/dl (10.1-14.3) 01/16/18 05:19 Hct 36.8 % (30.3-42.9) 01/16/18 05:19 MCV 97 fl (79-97) 01/16/18 05:19 MCH 32 pg (28-32) 01/16/18 05:19 MCHC 33 % (30-34) 01/16/18 05:19 RDW 15.8 % (13.2-15.2) H 01/16/18 05:19 Plt Count 140 K/mm3 (140-440) 01/16/18 05:19 Lymph % (Auto) 21.6 % (13.4-35.0) 01/16/18 05:19 [place] % (Auto) 5.5 % (0.0-7.3) 01/16/18 05:19 Eos % (Auto) 1.2 % (0.0-4.3) 01/16/18 05:19 Baso % (Auto) 0.3 % (0.0-1.8) 01/16/18 05:19 Lymph # 1.9 K/mm3 (1.2-5.4) 01/16/18 05:19 [place] # 0.5 K/mm3 (0.0-0.8) 01/16/18 05:19 Eos # 0.1 K/mm3 (0.0-0.4) 01/16/18 05:19 Baso # 0.0 K/mm3 (0.0-0.1) 01/16/18 05:19 Seg Neutrophils % 71.4 % (40.0-70.0) H 01/16/18 05:19 Seg Neutrophils # 6.3 K/mm3 (1.8-7.7) 01/16/18 05:19 Sodium 139 mmol/L (137-145) 01/16/18 05:19 Potassium 3.5 mmol/L (3.6-5.0) L 01/16/18 05:19 Chloride 109.5 mmol/L (98-107) H 01/16/18 05:19 Carbon Dioxide 16 mmol/L (22-30) L 01/16/18 05:19 Anion Gap 17 mmol/L 01/16/18 05:19 BUN 28 mg/dL (7-17) H 01/16/18 05:19 Creatinine 1.0 mg/dL (0.7-1.2) 01/16/18 05:19 Estimated GFR > 60 ml/min 01/16/18 05:19 BUN/Creatinine Ratio 28 % 01/16/18 05:19 Glucose 87 mg/dL (65-100) 01/16/18 05:19 Hemoglobin A1c 5.1 % (4-6) 01/15/18 23:28 Calcium 8.8 mg/dL (8.4-10.2) 01/16/18 05:19 Total Bilirubin 0.40 mg/dL (0.1-1.2) 01/16/18 05:19 AST 992 units/L (5-40) H 01/16/18 05:19 ALT 311 units/L (7-56) H 01/16/18 05:19 Alkaline Phosphatase 252 units/L (35-129) H 01/16/18 05:19 Troponin T 0.088 ng/mL (0.00-0.029) H 01/16/18 05:19 NT-Pro-B Natriuret Pep 1840 pg/mL (0-900) H 01/15/18 17:22 Total Protein 6.9 g/dL (6.3-8.2) 01/16/18 05:19 Albumin 3.5 g/dL (3.9-5) L 01/16/18 05:19 Albumin/Globulin Ratio 1.0 % 01/16/18 05:19 Triglycerides 100 mg/dL (2-149) 01/16/18 05:19 Cholesterol 142 mg/dL (50-199) 01/16/18 05:19 LDL Cholesterol Direct 78 mg/dL (50-130) 01/16/18 05:19 HDL Cholesterol 49 mg/dL (40-59) 01/16/18 05:19 Cholesterol/HDL Ratio 2.89 % 01/16/18 05:19
[2018-01-16 16:11] LABS: Hepatitis A Antibody IgM Non-Reactive (NonReactive); Hepatitis B Core IgM Non-Reactive (NonReactive); Hepatitis B Surface Antigen Non-Reactive (Negative); Hepatitis C Virus Antibody Reactive (NonReactive)
[2018-01-16] MEDS ORDERED: XANAX PO PRN (16:11)
--- NOTE | 2018-01-16 16:43 | Cat Scan Report ---
CT HEAD WITHOUT CONTRAST: 01/16/18 CLINICAL: Dizziness. TECHNIQUE: 2.5-mm noncontrast scans. COMPARISON:None FINDINGS: The ventricles and sulci are large for age. The frontal and temporal lobe sulci particularly enlarged. No suspicious hypodensity. Right posterior parietal encephalomalacia. Bilateral benign basal ganglia calcifications. This No mass or mass effect. No hemorrhage, edema or extra-axial collection. The sinuses are clear. Normal orbits and soft tissues. The calvarium and skull base are intact. IMPRESSION: 1. Frontotemporal cortical atrophy. 2. Chronic right posterior parietal infarct. 3. No evidence of acute infarct or hemorrhage.
[2018-01-16] MEDS: CATAPRES PO SCH ×2 (18:13→21:27)
[2018-01-16] MEDS: DUONEB *Not for PRN Use IH SCH (19:45)
[2018-01-16] MEDS: PERCOCET 5/325 PO PRN (19:46)
[2018-01-16] MEDS ORDERED: LOVENOX SUB-Q SCH (22:00)
--- NOTE | 2018-01-16 23:07 | Treadmill Report ---
INDICATION: Chest pain. ORDERING PHYSICIAN: Mary Salguero MD FINDINGS: There is no scintigraphic evidence of myocardial ischemia. The left ventricular cavity is borderline dilated. There is mild global left ventricular hypokinesis. The left ventricular ejection fraction is measured at 41%. CONCLUSION: 1. No scintigraphic evidence of myocardial ischemia. 2. Borderline left ventricular cavity size with mild global left ventricular hypokinesis and an ejection fraction measuring 41%. JOB# [id number] KADE/NTS
[2018-01-17] MEDS: DUONEB *Not for PRN Use IH SCH ×2 (02:09→08:39)
[2018-01-17 06:49] LABS: Basophils % (Auto) 0.5 % (0.0-1.8); Eosinophils # (Auto) 0.1 K/mm3 (0.0-0.4); Eosinophils % (Auto) 1.8 % (0.0-4.3); Hematocrit 37.8 % (30.3-42.9); Hemoglobin 12.5 gm/dl (10.1-14.3); Lymphocytes # (Auto) 1.9 K/mm3 (1.2-5.4); Lymphocytes % (Auto) 23.9 % (13.4-35.0); Mean Corpuscular HGB Conc 33 % (30-34); Mean Corpuscular Hemoglobin 32 pg (28-32); Mean Corpuscular Volume 97 fl (79-97); Monocytes # (Auto) 0.4 K/mm3 (0.0-0.8); Monocytes % (Auto) 5.4 % (0.0-7.3); Platelet Count 142 K/mm3 (140-440)
[2018-01-17 07:17] LABS: Calcium 8.9 mg/dL (8.4-10.2)
[2018-01-17] MEDS: CATAPRES PO SCH (08:45)
--- NOTE | 2018-01-17 10:27 | Progress Note ---
Assessment and Plan Shortness of breath improved Borderline elevated troponin no evidence of acute MO normal persantine thallium stress test. LVEF 40-45% by echocardiogram. Hx of Aortic aneurysm rupture s/p endovascular repair of aortic psedoaneurysm Hypertension History of DVT s/p IVC filter PVD s/p right AKA History of gastric bypass surgery Elevated troponin, chronic Tobacco abuse No further cardiac workup indicated. Medical therapy and risk factor modification Start patient on aspirin if there is no contraindication Subjective Date of service: 01/17/18 Principal diagnosis: Chest pain Interval history: no further chest pain Appears hemolytically stable Objective Vital Signs Temp Pulse Pulse Pulse Resp Resp Resp 01/17/18 08:51 69 16 01/17/18 08:45 01/17/18 08:39 68 16 01/17/18 08:38 01/17/18 08:37 01/17/18 07:56 98.3 F 72 20 01/17/18 05:23 97.9 F 74 18 01/17/18 04:17 74 01/17/18 04:00 70 01/17/18 00:46 98.9 F 77 20 01/16/18 22:00 18 01/16/18 20:06 85 14 01/16/18 19:46 80 12 01/16/18 19:42 98.5 F 81 18 01/16/18 17:54 70 01/16/18 17:25 97.9 F 72 01/16/18 15:29 78 01/16/18 12:00 70 BP BP Pulse Ox 01/17/18 08:51 01/17/18 08:45 184/90 01/17/18 08:39 01/17/18 08:38 100 01/17/18 08:37 184/90 01/17/18 07:56 174/80 100 01/17/18 05:23 155/77 99 01/17/18 04:17 155/77 100 01/17/18 04:00 01/17/18 00:46 135/78 100 01/16/18 22:00 01/16/18 20:06 01/16/18 19:46 01/16/18 19:42 156/84 99 01/16/18 17:54 207/84 99 01/16/18 17:25 180/84 01/16/18 15:29 177/90 01/16/18 12:00 - Physical Examination Narrative exam: Physical examination Vitals reviewed GEN: No acute distress noted HEENT: Carotids 2+ NECK: Supple CVS: S1 and S2 heard no significant murmur or gallop noted LUNGS/CHEST: Normal auscultation ABD: Soft nontender Extremities: Right BKA NEURO: Alert moves all all 4 extremities PSY: Stable tion. HEENT: Positive: PERRL - Labs and Meds CBC 01/17/18 Range/Units 04:46 WBC 8.1 (4.5-11.0) K/mm3 RBC 3.90 (3.65-5.03) M/mm3 Hgb 12.5 (10.1-14.3) gm/dl Hct 37.8 (30.3-42.9) % Plt Count 142 (140-440) K/mm3 Lymph # 1.9 (1.2-5.4) K/mm3 [place] # 0.4 (0.0-0.8) K/mm3 Eos # 0.1 (0.0-0.4) K/mm3 Baso # 0.0 (0.0-0.1) K/mm3 Comprehensive Metabolic Panel 01/17/18 Range/Units 04:46 Sodium 142 (137-145) mmol/L Potassium 4.2 (3.6-5.0) mmol/L Chloride 109.8 H (98-107) mmol/L Carbon Dioxide 16 L (22-30) mmol/L BUN 27 H (7-17) mg/dL Creatinine 1.2 (0.7-1.2) mg/dL Glucose 88 (65-100) mg/dL Calcium 8.9 (8.4-10.2) mg/dL
[2018-01-17] MEDS: SENOKOT PO SCH (11:19)
[2018-01-17] MEDS: COREG PO SCH (11:19)
[2018-01-17] MEDS: HCTZ PO SCH (11:19)
[2018-01-17] MEDS: PROTONIX PO SCH (11:20)
[2018-01-17] MEDS: DIOVAN PO SCH ×2 (11:20→11:22)
[2018-01-17] MEDS: DITROPAN XL PO SCH (11:20)
[2018-01-17] MEDS ORDERED: DUONEB *Not for PRN Use IH SCH (14:00)
--- NOTE | 2018-01-17 15:38 | Cat Scan Report ---
FINAL REPORT EXAM: CT ANGIO CHEST HISTORY: SOB COMPARISON: CT of the chest performed on 03/20/2017 TECHNIQUE: Multiple contiguous axial images were obtained from the thoracic inlet to the upper abdomen after administration of IV contrast. Reformatted sagittal and coronal images were available for review. FINDINGS: Medical devices: None. Thyroid: Normal. Lymph nodes: No significant mediastinal, hilar, or axillary lymphadenopathy. Vasculature: No filling defect within the pulmonary artery to suggest pulmonary embolism. Normal caliber of the thoracic aorta with a conventional branching pattern of the aortic arch. Scattered atherosclerotic plaques and calcifications. Heart: Hypertrophy of the left ventricular myocardium. Extensive coronary artery calcifications. Other mediastinal structures: Small hiatal hernia. Lung parenchyma: Dependent atelectasis at the bilateral lung bases. No suspicious nodule or mass. No focal consolidation. Airways: Patent. No bronchiectasis. Pleura: No pleural effusion or pneumothorax. Chest wall and spine: No suspicious osseous lesions. No acute fracture or dislocation. Upper Abdomen: Postsurgical changes from gastric bypass surgery with Olivia-en-Y. Partially visualized abdominal aortic stent. Bilateral renal cysts. Post cholecystectomy changes. IMPRESSION: 1. No evidence of pulmonary embolism. 2. Hypertrophy of the left ventricular myocardium, which can be seen in the setting of long-standing hypertension. Clinical correlation is recommended. 3. Extensive coronary artery calcifications.
--- NOTE | 2018-01-17 15:41 | Discharge Summary ---
Providers - Providers Date of Admission: 01/15/18 19:22 Attending physician: MARCE GARZA MD 01/15/18 Consult to Case Management [CONS] Routine Services Needed at Discharge: Home Health Services Notified:: trimming caser 01/16/18 13:15 Consult to Physician [CONS] Routine Comment: Consulting Provider: JAYLAN PERRY Physician Instructions: Reason For Exam: SOB, dizziness Primary care physician: SKELP PROCESSOR Hospitalization Reason for admission: Chest pain Condition: Fair Hospital course: 67-year-old female with past medical history significant for aortic aneurysm rupture status post endovascular repair, hypertension, DVT status post IVC filter, peripheral vascular disease presented to the emergency department his complains of shortness of breath, dizziness Shortness of breath -Elevated cardiac enzymes which is chronic, cardiac stress test done and negative for acute ischemia -CTA chest normal -Cardiology consulted and recommended no further cardiac workup Dizziness - CT head normal - Dizziness resolved Hypertension - Adjust blood pressure medication Hepatitis panel was done and positive for hepatitis C antibody, we called the patient and sent the result to her PCP. Patient was hemodynamically stable at the time of discharge. Appropriate medication scripts were given at the time of discharge Disposition: DC-01 TO HOME OR SELFCARE Time spent for discharge: 32 minutes - Discharge Diagnoses (1) Acute chest pain Status: Acute (2) CHF (congestive heart failure) Status: Chronic Qualifiers: Heart failure type: systolic Heart failure chronicity: acute on chronic Qualified Code(s): I50.23 - Acute on chronic systolic (congestive) heart failure (3) Above knee amputation of right lower extremity Status: Acute Core Measure Documentation - Palliative Care Palliative Care/ Comfort Measures: Not Applicable - Core Measures Any of the following diagnoses?: history only (CHF) Exam - Physical Exam Narrative exam: Not in cardiopulmonary distress. The patient appeared well nourished and normally developed. Vital signs as documented. Head exam is unremarkable. No scleral icterus . Neck is without jugular venous distension, thyromegaly, or carotid bruits. Lungs are clear to auscultation. Cardiac exam reveals regular rate and Rhythm. Abdominal exam reveals normal bowel sounds, no masses, no organomegaly and no aortic enlargement. Extremities right AKA. CHIEF SCIENTIST: Alert and oriented 3. No focal weakness. - Constitutional Vitals: Temp Pulse Resp BP Pulse Ox 98.3 F 80 16 168/81 100 01/17/18 07:56 01/17/18 14:22 01/17/18 14:22 01/17/18 11:19 01/17/18 08:38 Plan Activity: advance as tolerated Weight Bearing Status: Partial Weight Bearing Diet: low salt Additional Instructions: Follow up at [facility] in 1-2 weeks Follow up with: PRIMARY CAREMD [Primary Care Provider] - 3-5 Days Prescriptions: Carvedilol [Coreg] 25 mg PO BID #60 tablet Hydrochlorothiazide [HCTZ] 25 mg PO QDAY #30 capsule Valsartan [Diovan] 160 mg PO BID #60 tablet
[2018-01-17 17:51] VITALS: BP 168/78
== END 2018-01-17 18:30 | disposition home or self-care (01) | DRG 291 ==
LOC: ED 14:30 → 4A 19:22
PROVIDERS: ADMIT Internal Medicine; ATTEND Internal Medicine
DX: I13.0 Hypertensive heart and chronic kidney disease with heart failure and stage 1 through stage 4 chronic kidney disease, or unspecified chronic kidney disease (principal); I50.23 Acute on chronic systolic (congestive) heart failure; R07.89 Other chest pain; I42.9 Cardiomyopathy, unspecified; N18.3 Chronic kidney disease, stage 3 (moderate); E87.6 Hypokalemia; E86.0 Dehydration; K21.9 Gastro-esophageal reflux disease without esophagitis; D64.9 Anemia, unspecified; R74.0 Nonspecific elevation of levels of transaminase and lactic acid dehydrogenase [LDH]; Z89.511 Acquired absence of right leg below knee; Z90.49 Acquired absence of other specified parts of digestive tract; Z95.828 Presence of other vascular implants and grafts; Z79.899 Other long term (current) drug therapy; Z88.8 Allergy status to other drugs, medicaments and biological substances; Z88.2 Allergy status to sulfonamides; Z86.718 Personal history of other venous thrombosis and embolism; Z79.01 Long term (current) use of anticoagulants; Z98.0 Intestinal bypass and anastomosis status
CPT/HCPCS: 36415; 70450; 71045; 71275; 78452; 80048; 80053; 80061; 80074; 83036; 83880; 84484; 85025; 93005; 93010; 93017; 93306; 94640; 94760; 96374; 99406; A9502; J0360; J1940; J2785; J7030; Q9967

== ENCOUNTER 2018-07-22 23:19 | Inpatient (IN) | payer MEDICARE, OTHER ==
[2018-07-22] MEDS ORDERED: ASPIRIN PO ONE (23:31)
[2018-07-23 00:05] LABS: Basophils # (Auto) 0.1 K/mm3 (0.0-0.1); Basophils % (Auto) 0.7 % (0.0-1.8); Eosinophils # (Auto) 0.1 K/mm3 (0.0-0.4); Eosinophils % (Auto) 0.8 % (0.0-4.3); Hemoglobin 13.7 gm/dl (10.1-14.3); Lymphocytes # (Auto) 1.3 K/mm3 (1.2-5.4); Lymphocytes % (Auto) 8.5 % (13.4-35.0); Mean Corpuscular HGB Conc 33 % (30-34); Mean Corpuscular Volume 99 fl (79-97); Monocytes # (Auto) 0.9 K/mm3 (0.0-0.8); Monocytes % (Auto) 5.6 % (0.0-7.3); Platelet Count 178 K/mm3 (140-440); Red Blood Count 4.24 M/mm3 (3.65-5.03)
[2018-07-23 00:27] LABS: BUN/Creatinine Ratio 27; Blood Urea Nitrogen 24 mg/dL (7-17); Hemolysis Index 12
[2018-07-23] MEDS ORDERED: NORMODYNE IV ONE ×2 (01:13→01:22)
--- NOTE | 2018-07-23 01:21 | Emergency Department Report ---
ED Chest Pain HPI - General Chief Complaint: Chest Pain Stated Complaint: CHEST PAIN Time Seen by Provider: 07/22/18 23:38 Source: patient, EMS Mode of arrival: Stretcher Limitations: Physical Limitation - History of Present Illness Initial Comments: Mrs. Allan is a 67 yo female with hx of PAD, CHF, HTN, elevated troponin levels presents with chest pressure/heaviness, nausea, vomiting and dyspnea. Symptoms began 3 PM this evening. Severe 10/10 pain. Now, 0/10 after ASA and nitroglycerin provided per EMS. She is unclear why BP is markedly high. PCP Dr. Nori Bryant Cardiololgist Dr. Anushka Blue MD Complaint: chest pain -: Sudden Onset: during rest Pain Location: substernal Severity scale (0 -10): 6 Quality: heaviness, pressure Consistency: now resolved Improves With: nitroglycerin Worsens With: nothing re: nausea, vomting, dyspnea Treatments Prior to Arrival: aspirin, nitroglycerin, oxygen - Related Data Home Medications Medication Instructions Recorded Confirmed Last Taken Hyoscyamine Sulfate [Hyoscyamine 0.125 mg PO Q6H PRN 04/22/17 12/03/17 12/02/17 Rapdis 0.125 mg] Oxybutynin Chloride [Ditropan Xl] 10 mg PO DAILY 04/22/17 12/03/17 12/02/17 Previous Rx's Medication Instructions Recorded Last Taken Type Pantoprazole [Protonix TAB] 40 mg PO QDAY #30 tablet 03/22/17 12/02/17 Rx Ferrous Sulfate [Feosol 325 MG tab] 325 mg PO BID tablet 07/18/17 12/02/17 Rx Oxycodone HCl/Acetaminophen 1 each PO Q6HR PRN #15 tablet 12/05/17 Unknown Rx [Percocet 10/325 mg] Polyethylene Glycol 3350 [Miralax 17 gm PO BID PRN #60 powd.pack 12/05/17 Unknown Rx 3350] Sennosides Tab [Senokot] 8.6 mg PO Q12HR #60 tablet 12/05/17 Unknown Rx Carvedilol [Coreg] 25 mg PO BID #60 tablet 01/17/18 Unknown Rx Valsartan [Diovan] 160 mg PO BID #60 tablet 01/17/18 Unknown Rx hydroCHLOROthiazide [HCTZ] 25 mg PO QDAY #30 capsule 01/17/18 Unknown Rx Allergies Allergy/AdvReac Type Severity Reaction Status Date / Time heparin Allergy Unknown Verified 04/17/18 07:36 Sulfa (Sulfonamide Allergy Unknown Verified 05/14/17 15:58 Antibiotics) Heart Score - HEART Score History: Highly suspicious EKG: Non-specific Age: > 65 Risk factors: > 3 risk factors or hx of atherosclerotic disease Troponin: 1-3x normal limit HEART Score: 8 ED Review of Systems ROS: Stated complaint: CHEST PAIN Other details as noted in HPI Comment: All other systems reviewed and negative Constitutional: denies: diaphoresis, malaise Respiratory: shortness of breath. denies: cough Cardiovascular: chest pain ED Past Medical Hx - Past Medical History Previous Medical History?: Yes Hx Hypertension: Yes Hx Congestive Heart Failure: Yes Hx Deep Vein Thrombosis: No Hx Renal Disease: Yes (CKD, stage 3) Hx COPD: Yes Additional medical history: h/o C-DIFF, RT BKA 2017,anemia with blood transfusion - Surgical History Past Surgical History?: Yes Hx Pacemaker: No Hx Internal Defibrillator: No Hx Cholecystectomy: Yes Hx Appendectomy: Yes Additional Surgical History: Endovascular aortic stent graft, femoral femoral bypass, IVC filter - Social History Smoking Status: Current Every Day Smoker Substance Use Type: None - Medications Home Medications: Home Medications Medication Instructions Recorded Confirmed Last Taken Type Pantoprazole [Protonix TAB] 40 mg PO QDAY #30 tablet 03/22/17 12/03/17 12/02/17 Rx Hyoscyamine Sulfate [Hyoscyamine 0.125 mg PO Q6H PRN 04/22/17 12/03/17 12/02/17 History Rapdis 0.125 mg] Oxybutynin Chloride [Ditropan Xl] 10 mg PO DAILY 04/22/17 12/03/17 12/02/17 History Ferrous Sulfate [Feosol 325 MG tab] 325 mg PO BID tablet 07/18/17 12/03/17 12/02/17 Rx Oxycodone HCl/Acetaminophen 1 each PO Q6HR PRN #15 tablet 12/05/17 Unknown Rx [Percocet 10/325 mg] Polyethylene Glycol 3350 [Miralax 17 gm PO BID PRN #60 powd.pack 12/05/17 Unknown Rx 3350] Sennosides Tab [Senokot] 8.6 mg PO Q12HR #60 tablet 12/05/17 Unknown Rx Carvedilol [Coreg] 25 mg PO BID #60 tablet 01/17/18 Unknown Rx Valsartan [Diovan] 160 mg PO BID #60 tablet 01/17/18 Unknown Rx hydroCHLOROthiazide [HCTZ] 25 mg PO QDAY #30 capsule 01/17/18 Unknown Rx ED Physical Exam - General General appearance: alert, in no apparent distress, other (frequent cough) - Head Head exam: Present: atraumatic, normocephalic - Eye Eye exam: Present: normal appearance - ENT ENT exam: Present: mucous membranes moist - Neck Neck exam: Present: normal inspection. Absent: tenderness, meningismus - Respiratory Respiratory exam: Present: normal lung sounds bilaterally. Absent: respiratory distress, wheezes, rales, rhonchi - Cardiovascular Cardiovascular Exam: Present: regular rate, normal rhythm, normal heart sounds. Absent: systolic murmur, diastolic murmur, rubs, gallop - GI/Abdominal GI/Abdominal exam: Present: soft, normal bowel sounds. Absent: distended, tenderness, guarding, rebound - Extremities Exam Extremities exam: Present: other (right BKA) - Back Exam Back exam: Present: normal inspection - Neurological Exam Neurological exam: Present: alert, oriented X3 - Psychiatric Psychiatric exam: Present: normal affect, normal mood - Skin Skin exam: Present: warm, dry, intact, normal color. Absent: rash ED Course Vital Signs 07/22/18 07/23/18 23:42 00:28 Temperature 98.4 F 97.9 F Pulse Rate 85 88 Respiratory 20 17 Rate Blood Pressure 165/103 Blood Pressure 203/92 [Left] O2 Sat by Pulse 100 99 Oximetry ED Medical Decision Making - Lab Data Result diagrams: 07/22/18 23:53 07/22/18 23:53 Labs 07/22/18 07/22/18 23:53 23:53 WBC 15.6 H RBC 4.24 Hgb 13.7 Hct 42.0 MCV 99 H MCH 32 MCHC 33 RDW 15.0 Plt Count 178 Lymph % (Auto) 8.5 L [place] % (Auto) 5.6 Eos % (Auto) 0.8 Baso % (Auto) 0.7 Lymph # 1.3 [place] # 0.9 H Eos # 0.1 Baso # 0.1 Seg Neutrophils % 84.4 H Seg Neutrophils # 13.1 H Sodium 144 Potassium 3.4 L Chloride 114.2 H Carbon Dioxide 18 L Anion Gap 15 BUN 24 H Creatinine 0.9 Estimated GFR > 60 BUN/Creatinine Ratio 27 Glucose 86 Calcium 9.0 Troponin T 0.105 H* - EKG Data Interpretation: no acute changes 07/23/18 01:19 EKG obtained 0055 Normal sinus rhythm rate 70 bpm normal axis prolonged QT interval prolonged [place] interval no ST elevation positive LVH - Radiology Data Radiology results: report reviewed - Medical Decision Making Mrs. Allan will be admitted to hospitalist service for acute coronary syndrome. CUrrently chest pain free. Do not suspect PE or aortic dissection. Critical care attestation.: If time is entered above; I have spent that time in minutes in the direct care of this critically ill patient, excluding procedure time. ED Disposition Clinical Impression: Acute coronary syndrome Disposition: - OP ADMIT IP TO THIS HOSP Is pt being admited?: Yes Does the pt Need Aspirin: No Condition: Stable Referrals: FOUZIA ALVAREZ MD [Primary Care Provider] - 3-5 Days
[2018-07-23] MEDS ORDERED: COREG PO ONE (01:28)
[2018-07-23] MEDS ORDERED: DIOVAN PO ONE (01:28)
--- NOTE | 2018-07-23 01:42 | XRay Report ---
FINAL REPORT EXAM: XR CHEST 1V AP HISTORY: dyspnea TECHNIQUE: Single AP portable radiograph of the chest was obtained. PRIORS: None. FINDINGS: There are no focal consolidations to suggest pneumonia. No large pleural effusion. No pneumothorax. Mild enlargement of the cardiac silhouette. Tortuosity and atherosclerotic vascular calcifications of the thoracic aorta. Mediastinal structures are unremarkable. No acute osseous abnormality identified . IMPRESSION: No radiographic evidence of acute cardiopulmonary disease. Mild enlargement of the cardiac silhouette and atherosclerotic vascular calcifications, stable appear ance.
[2018-07-23] MEDS ORDERED: MORPHINE IV ONE (01:44)
[2018-07-23] MEDS ORDERED: TYLENOL PO PRN (01:59)
[2018-07-23] MEDS ORDERED: ZOFRAN IV PRN (01:59)
[2018-07-23] MEDS ORDERED: SODIUM CHLORIDE FLUSH SYRINGE 10 ML IV PRN (01:59)
[2018-07-23] MEDS ORDERED: NITROSTAT SL PRN (02:43)
[2018-07-23 03:15] LABS: HDL Cholesterol 51 mg/dL (40-59); LDL Cholesterol,Direct 76 mg/dL (50-130)
--- NOTE | 2018-07-23 03:19 | History and Physical Report ---
History of Present Illness Date of examination: 07/23/18 Date of admission: 07/23/18 Chief complaint: chest pain History of present illness: Pt is a 67 yo female with PMHx of CKD, PAD, CHF, HTN, who presents to the ER with c/o chest pressure started a 3 PM last evening. Pt states that the pain started as a dull intermittent pressure and increase in intensity, it becomes a heaviness pressure associated with diaphoresis and nausea, vomiting and dyspnea. Pt states that the pain become severe with an intensity of 10/10 pain, that's when he ask family to call EMS to take her to the hospital. Pt states that she was giving ASA and nitroglycerin by EMS with great improvement of the pain. In the ER, pt had an EKG with no STEMI criteria, her blood pressure was markedly elevated 203/103 , her first cardiac enzyme was elevated at 0.105. Pt admits to visit her facility maintenance mechanic frequently, she had a stress test last year which was normal, her facility maintenance mechanic monitor her blood bressure. Pt denies family history of self history of chest pain or heart disease, denies cough, denies palpitation, denies headache, denies dizziness, denies LOC. She is admitted for chest pain, elevated cardiac enzyme and elevated blood pressurefor further evaluation and treatment. Past History Past Medical History: heart failure, hypertension, PVD Past Surgical History: cholecystectomy, , bowel surgery, Other (rt AKA, ) Social history: lives with family, smoking (4-5 cigarette/day) Family history: hypertension Medications and Allergies Allergies Allergy/AdvReac Type Severity Reaction Status Date / Time heparin Allergy Unknown Verified 04/17/18 07:36 Sulfa (Sulfonamide Allergy Unknown Verified 05/14/17 15:58 Antibiotics) Home Medications Medication Instructions Recorded Confirmed Last Taken Type Pantoprazole [Protonix TAB] 40 mg PO QDAY #30 tablet 03/22/17 07/23/18 12/02/17 Rx Hyoscyamine Sulfate [Hyoscyamine 0.125 mg PO Q6H PRN 04/22/17 07/23/18 12/02/17 History Rapdis 0.125 mg] Oxybutynin Chloride [Ditropan Xl] 10 mg PO DAILY 04/22/17 07/23/18 12/02/17 History Ferrous Sulfate [Feosol 325 MG tab] 325 mg PO BID tablet 07/18/17 07/23/18 06/03/03 Rx Oxycodone HCl/Acetaminophen 1 each PO Q6HR PRN #15 tablet 12/05/17 07/23/18 Unknown Rx [Percocet 10/325 mg] Polyethylene Glycol 3350 [Miralax 17 gm PO BID PRN #60 powd.pack 12/05/17 07/23/18 Unknown Rx 3350] Sennosides Tab [Senokot] 8.6 mg PO Q12HR #60 tablet 12/05/17 07/23/18 Unknown Rx Carvedilol [Coreg] 25 mg PO BID #60 tablet 01/17/18 07/23/18 Unknown Rx Valsartan [Diovan] 160 mg PO BID #60 tablet 01/17/18 07/23/18 Unknown Rx hydroCHLOROthiazide [HCTZ] 25 mg PO QDAY #30 capsule 01/17/18 07/23/18 Unknown Rx Active Meds: Active Medications Acetaminophen (Tylenol) 650 mg PO Q4H PRN PRN Reason: Pain MILD(1-3)/Fever >100.5/[place] Aspirin (Ecotrin) 325 mg PO QDAY TERESA Hydralazine HCl (Apresoline) 10 mg IV Q6HR PRN PRN Reason: Hypertension Morphine Sulfate (Morphine) 2 mg IV Q4H PRN PRN Reason: Pain, Moderate (4-6) Nitroglycerin (Nitrostat) 0.4 mg SL Q5M PRN PRN Reason: Chest Pain Ondansetron HCl (Zofran) 4 mg IV Q8H PRN PRN Reason: Nausea And Vomiting Sodium Chloride (Sodium Chloride Flush Syringe 10 Ml) 10 ml IV BID TERESA Sodium Chloride (Sodium Chloride Flush Syringe 10 Ml) 10 ml IV PRN PRN PRN Reason: LINE FLUSH Review of Systems Cardiovascular: chest pain, shortness of breath Gastrointestinal: nausea Exam - Constitutional Vitals: Temp Pulse Resp BP Pulse Ox 97.9 F 83 21 168/91 96 07/23/18 00:28 07/23/18 02:54 07/23/18 02:00 07/23/18 02:25 07/23/18 02:00 General appearance: Present: no acute distress, mild distress - EENT Eyes: Present: PERRL, EOM intact ENT: hearing intact - Neck Neck: Present: supple, normal ROM - Respiratory Respiratory effort: normal Respiratory: bilateral: CTA - Cardiovascular Rhythm: regular - Extremities Extremities: no ischemia Peripheral Pulses: within normal limits - Abdominal General gastrointestinal: Present: deferred, non-tender Female genitourinary: Present: deferred - Rectal Rectal Exam: deferred - Integumentary Integumentary: Present: clear, warm - Musculoskeletal Musculoskeletal: strength equal bilaterally - Psychiatric Psychiatric: appropriate mood/affect - Neurologic Neurologic: moves all extremities Results - Labs CBC & Chem 7: 07/22/18 23:53 07/22/18 23:53 Labs: Laboratory Last Values WBC 15.6 K/mm3 (4.5-11.0) H 07/22/18 23:53 RBC 4.24 M/mm3 (3.65-5.03) 07/22/18 23:53 Hgb 13.7 gm/dl (10.1-14.3) 07/22/18 23:53 Hct 42.0 % (30.3-42.9) 07/22/18 23:53 MCV 99 fl (79-97) H 07/22/18 23:53 MCH 32 pg (28-32) 07/22/18 23:53 MCHC 33 % (30-34) 07/22/18 23:53 RDW 15.0 % (13.2-15.2) 07/22/18 23:53 Plt Count 178 K/mm3 (140-440) 07/22/18 23:53 Lymph % (Auto) 8.5 % (13.4-35.0) L 07/22/18 23:53 [place] % (Auto) 5.6 % (0.0-7.3) 07/22/18 23:53 Eos % (Auto) 0.8 % (0.0-4.3) 07/22/18 23:53 Baso % (Auto) 0.7 % (0.0-1.8) 07/22/18 23:53 Lymph # 1.3 K/mm3 (1.2-5.4) 07/22/18 23:53 [place] # 0.9 K/mm3 (0.0-0.8) H 07/22/18 23:53 Eos # 0.1 K/mm3 (0.0-0.4) 07/22/18 23:53 Baso # 0.1 K/mm3 (0.0-0.1) 07/22/18 23:53 Seg Neutrophils % 84.4 % (40.0-70.0) H 07/22/18 23:53 Seg Neutrophils # 13.1 K/mm3 (1.8-7.7) H 07/22/18 23:53 Sodium 144 mmol/L (137-145) 07/22/18 23:53 Potassium 3.4 mmol/L (3.6-5.0) L 07/22/18 23:53 Chloride 114.2 mmol/L (98-107) H 07/22/18 23:53 Carbon Dioxide 18 mmol/L (22-30) L 07/22/18 23:53 Anion Gap 15 mmol/L 07/22/18 23:53 BUN 24 mg/dL (7-17) H 07/22/18 23:53 Creatinine 0.9 mg/dL (0.7-1.2) 07/22/18 23:53 Estimated GFR > 60 ml/min 07/22/18 23:53 BUN/Creatinine Ratio 27 % 07/22/18 23:53 Glucose 86 mg/dL (65-100) 07/22/18 23:53 Calcium 9.0 mg/dL (8.4-10.2) 07/22/18 23:53 Troponin T 0.242 ng/mL (0.00-0.029) H* D 07/23/18 02:32 Assessment and Plan Assessment and plan: 1. Chest pain r/o ACS 2. Elevated troponin level 3. Accelerated HTN 4. H/o PVD s/p rt AKA 5. Leukocytosis (etiology unclear) 6. Hyponatremia Plan: Admit to [facility] for chest pain Continue CE Q6hr x2 more Nitro PRN for chest pain Repeat EKG in am Morphine PRN for chest pain Consult cardiology for evaluation Hydralazine PRN for elevated BP Resume home meds Plan d/w pt and family, voiced understanding Pt's condition and plan of care discussed with Dr Mejia Advance Directives: Yes VTE prophylaxis?: Chemical Plan of care discussed with patient/family: Yes
[2018-07-23 05:25] LABS: Basophils % (Auto) 0.3 % (0.0-1.8); Eosinophils # (Auto) 0.1 K/mm3 (0.0-0.4); Eosinophils % (Auto) 0.7 % (0.0-4.3); Hematocrit 38.4 % (30.3-42.9); Hemoglobin 12.8 gm/dl (10.1-14.3); Lymphocytes # (Auto) 1.6 K/mm3 (1.2-5.4); Lymphocytes % (Auto) 13.8 % (13.4-35.0); Mean Corpuscular HGB Conc 33 % (30-34); Mean Corpuscular Volume 98 fl (79-97); Monocytes # (Auto) 0.5 K/mm3 (0.0-0.8); Monocytes % (Auto) 4.1 % (0.0-7.3); Platelet Count 141 K/mm3 (140-440); Red Blood Count 3.91 M/mm3 (3.65-5.03); Red Cell Distribution Width 15.1 % (13.2-15.2)
[2018-07-23] MEDS ORDERED: K-DUR PO ONE (05:37)
[2018-07-23 05:38] LABS: BUN/Creatinine Ratio 30; Blood Urea Nitrogen 24 mg/dL (7-17); Calcium 8.6 mg/dL (8.4-10.2); Hemolysis Index 7
[2018-07-23] MEDS: LOVENOX SUB-Q SCH ×2 (05:58→20:03)
[2018-07-23] MEDS: APRESOLINE IV PRN (05:58)
[2018-07-23] MEDS: MORPHINE IV PRN ×3 (08:05→21:51)
[2018-07-23] MEDS ORDERED: NON-FORMULARY (Oxycodone Hcl/Acetaminophen [Percocet 10/325 Mg] 1 EACH) PO PRN (08:55)
[2018-07-23] MEDS ORDERED: NON-FORMULARY (Hyoscyamine Sulfate [Hyoscyamine Rapdis 0.125 Mg] 0.125 MG) PO PRN (08:55)
[2018-07-23] MEDS ORDERED: NORMODYNE IV PRN (08:56)
--- NOTE | 2018-07-23 09:28 | Consultation ---
Addendum entered and electronically signed by ANATOLIY DAVIS MD 07/23/18 11:33: 67-year-old woman who presents with chest pain, with somewhat atypical features but pain is recurrent. She has had extensive prior cardiac noninvasive workup, with negative stress test both in January 2017 and again in January 2018. She has had documented mild left ventricle dysfunction with ejection fraction 40-45%, a diagnosis of mild nonischemic cardiomyopathy. She has multiple other comorbidities. Peripheral arterial disease, with an aortic aneurysm endovascular repair in 2017, status post right above-knee amputation, DVT status post IVC filter, chronic hypertension, previous gastric bypass surgery. Cardiac workup so far this admission: ECG is sinus rhythm with nonspecific ST and T-wave abnormalities. The cardiac isoenzyme troponin levels were reported elevated. Overnight on telemetry, she manifested prolonged episodes of bradycardia, some of which appear to be cycles of Wenckebach AV block, and other episodes appeared to be episodes of sinus arrest or higher degrees of AV block. It will be also noted that she underwent electrophysiologic consultation in 2017 for bradycardia. Recommendations: Due to multiple risk factors including her vascular disease, recurrent chest pain despite negative thallium stress test, we recommend proceeding with invasive coronary angiography at this time. Risks and benefits discussed with patient and , who consented to proceed. Cardiac catheterization will be scheduled for tomorrow morning. We will obtain an electrophysiologic consultation for the nocturnal bradycardia, to exclude malignant bradycardia arrhythmia. The patient will also benefit from workup for possible sleep apnea. Original Note: History of Present Illness Consult date: 07/23/18 Consult reason: chest pain, elevated troponin History of present illness: Patient is a 67 year old woman with multiple medical problems including chronic elevated troponins, chronic hypertension which is follow by [facility] in [place]. 6 months ago she underwent a negative stress thallium test with a mildly decrease LV systolic function, ejection fraction 40-45% by echocardiogram. Patient returns to this hospital with complaints of chest pain, thus this cardiac consultation. Patient describes chest pain as pressure associated with nausea and vomiting. She denies fever and congestion. She denies unusual shortne ss of breath or chest pain on exertion. Chest x-ray is negative. An EKG shows sinus rhythm with LVH of repolarization abnormalities. Review of telemetry strips shows marked sinus bradycardia with Wenckebach AV block during hours of sleep. She has not had any orlin-arrhythmias while awake. Medications lists she is taking carvediolol 25mg twice daily which has now been stopped. Past History Past Surgical History: cholecystectomy, , bowel surgery, Other (rt AKA, Gastric bypass) Social history: lives with family, smoking (4-5 cigarette/day) Family history: hypertension Medications and Allergies Allergies Allergy/AdvReac Type Severity Reaction Status Date / Time heparin Allergy Unknown Verified 04/17/18 07:36 Sulfa (Sulfonamide Allergy Unknown Verified 05/14/17 15:58 Antibiotics) Home Medications Medication Instructions Recorded Confirmed Last Taken Type Pantoprazole [Protonix TAB] 40 mg PO QDAY #30 tablet 03/22/17 07/23/18 12/02/17 Rx Hyoscyamine Sulfate [Hyoscyamine 0.125 mg PO Q6H PRN 04/22/17 07/23/18 12/02/17 History Rapdis 0.125 mg] Oxybutynin Chloride [Ditropan Xl] 10 mg PO DAILY 04/22/17 07/23/18 12/02/17 History Ferrous Sulfate [Feosol 325 MG tab] 325 mg PO BID tablet 07/18/17 07/23/18 12/02/17 Rx Oxycodone HCl/Acetaminophen 1 each PO Q6HR PRN #15 tablet 12/05/17 07/23/18 Unknown Rx [Percocet 10/325 mg] Polyethylene Glycol 3350 [Miralax 17 gm PO BID PRN #60 powd.pack 12/05/17 07/23/18 Unknown Rx 3350] Sennosides Tab [Senokot] 8.6 mg PO Q12HR #60 tablet 12/05/17 07/23/18 Unknown Rx Carvedilol [Coreg] 25 mg PO BID #60 tablet 01/17/18 07/23/18 Unknown Rx Valsartan [Diovan] 160 mg PO BID #60 tablet 01/17/18 07/23/18 Unknown Rx hydroCHLOROthiazide [HCTZ] 25 mg PO QDAY #30 capsule 01/17/18 07/23/18 Unknown Rx Active Meds: Active Medications Acetaminophen (Tylenol) 650 mg PO Q4H PRN PRN Reason: Pain MILD(1-3)/Fever >100.5/[place] Aspirin (Ecotrin) 325 mg PO QDAY TERESA Carvedilol (Coreg) 25 mg PO BID [facility]A Enoxaparin Sodium (Lovenox) 70 mg 1 mg/kg (70 mg) SUB-Q Q12H [facility] Last Admin: 07/23/18 05:58 Dose: 70 mg Documented by: Ferrous Sulfate (Feosol) 325 mg PO BID [facility] Hydralazine HCl (Apresoline) 10 mg IV Q6HR PRN PRN Reason: Hypertension Last Admin: 07/23/18 05:58 Dose: 10 mg Documented by: Hydrochlorothiazide (Hctz) 25 mg PO QDAY [facility] Labetalol HCl (Normodyne) 20 mg IV Q4H PRN PRN Reason: BP >160/100; hold for HR <60 Miscellaneous Medication (Hyoscyamine Sulfate [Hyoscyamine Rapdis 0.125 Mg]) 0.125 mg PO Q6H PRN PRN Reason: Spasms Miscellaneous Medication (Oxybutynin Chloride [Ditropan Xl]) 10 mg PO DAILY [facility] Miscellaneous Medication (Oxycodone Hcl/Acetaminophen [Percocet 10/325 Mg]) 1 each PO Q6HR PRN PRN Reason: Pain Morphine Sulfate (Morphine) 2 mg IV Q4H PRN PRN Reason: Pain, Moderate (4-6) Last Admin: 07/23/18 08:05 Dose: 2 mg Documented by: Nitroglycerin (Nitrostat) 0.4 mg SL Q5M PRN PRN Reason: Chest Pain Ondansetron HCl (Zofran) 4 mg IV Q8H PRN PRN Reason: Nausea And Vomiting Pantoprazole Sodium (Protonix) 40 mg PO QDAY [facility] Polyethylene Glycol (Miralax 3350) 17 gm PO BID PRN PRN Reason: Constipation Senna (Senokot) 8.6 mg PO Q12HR [facility] Sodium Chloride (Sodium Chloride Flush Syringe 10 Ml) 10 ml IV BID [facility] Sodium Chloride (Sodium Chloride Flush Syringe 10 Ml) 10 ml IV PRN PRN PRN Reason: LINE FLUSH Valsartan (Diovan) 160 mg PO BID [facility] Physical Examination Vital Signs Temp Pulse Resp BP Pulse Ox 98.4 F 85 20 165/103 100 07/22/18 23:42 07/22/18 23:42 07/22/18 23:42 07/22/18 23:42 07/22/18 23:42 General appearance: no acute distress HEENT: Positive: PERRL Neck: Positive: trachea midline Cardiac: Positive: Reg Rate and Rhythm Lungs: Positive: Decreased Breath Sounds Neuro: Positive: Grossly Intact Extremities: Present: Other (right AKA) Results 07/23/18 04:47 07/23/18 04:47 Lipids 07/22/18 Range/Units 23:53 Triglycerides 184 H (2-149) mg/dL Cholesterol 138 (50-199) mg/dL HDL Cholesterol 51 (40-59) mg/dL Cholesterol/HDL Ratio 2.70 % CBC 07/22/18 07/23/18 Range/Units 23:53 04:47 WBC 15.6 H 11.9 H (4.5-11.0) K/mm3 RBC 4.24 3.91 (3.65-5.03) M/mm3 Hgb 13.7 12.8 (10.1-14.3) gm/dl Hct 42.0 38.4 (30.3-42.9) % Plt Count 178 141 (140-440) K/mm3 Lymph # 1.3 1.6 (1.2-5.4) K/mm3 [place] # 0.9 H 0.5 (0.0-0.8) K/mm3 Eos # 0.1 0.1 (0.0-0.4) K/mm3 Baso # 0.1 0.0 (0.0-0.1) K/mm3 Comprehensive Metabolic Panel 07/22/18 07/23/18 Range/Units 23:53 04:47 Sodium 144 143 (137-145) mmol/L Potassium 3.4 L 3.4 L (3.6-5.0) mmol/L Chloride 114.2 H 114.9 H (98-107) mmol/L Carbon Dioxide 18 L 17 L (22-30) mmol/L BUN 24 H 24 H (7-17) mg/dL Creatinine 0.9 0.8 (0.7-1.2) mg/dL Glucose 86 99 (65-100) mg/dL Calcium 9.0 8.6 (8.4-10.2) mg/dL Assessment and Plan Chest pain associated with N/V Elevated troponin, chronic normal persantine thallium stress test 01/2018. LVEF 40-45% by echocardiogram 01/2018. Hx of Aortic aneurysm rupture s/p endovascular repair of aortic psedoaneurysm Hypertension History of DVT s/p IVC filter PVD s/p right AKA History of gastric bypass surgery Tobacco abuse Marked sinus bradycardia with Wenckebach AV block during hours of sleep. no orlin-arrhythmias while awake. Recommendations: Discontinue carvediolol. Check a TSH and magnesium. Further ischemic evaluation with a left cardiac catheterization will be done today.
[2018-07-23] MEDS ORDERED: HCTZ PO SCH (10:00)
[2018-07-23] MEDS ORDERED: COREG PO SCH ×2 (10:00)
[2018-07-23] MEDS ORDERED: NON-FORMULARY (Oxybutynin Chloride [Ditropan Xl] 10 MG) PO SCH (10:00)
[2018-07-23] MEDS: SODIUM CHLORIDE FLUSH SYRINGE 10 ML IV SCH ×2 (10:53→21:55)
[2018-07-23] MEDS ORDERED: PERCOCET 5/325 PO PRN (11:00)
[2018-07-23] MEDS ORDERED: LEVSIN SL SL PRN (11:30)
[2018-07-23] MEDS ORDERED: MIRALAX 3350 PO PRN (11:30)
[2018-07-23 12:12] LABS: INR 1.02 (0.87-1.13)
[2018-07-23] MEDS: HCTZ PO SCH (13:52)
[2018-07-23] MEDS: DITROPAN XL PO SCH (13:54)
[2018-07-23] MEDS: FEOSOL PO SCH ×2 (13:54→21:55)
[2018-07-23] MEDS: DIOVAN PO SCH ×2 (14:00→21:54)
[2018-07-23] MEDS: PROTONIX PO SCH (14:01)
[2018-07-23] MEDS: SENOKOT PO SCH ×2 (14:01→21:55)
[2018-07-24] MEDS: LOVENOX SUB-Q SCH (05:56)
[2018-07-24] MEDS: APRESOLINE IV PRN ×2 (08:18→15:37)
[2018-07-24] MEDS: MORPHINE IV PRN ×2 (08:19→18:59)
[2018-07-24] MEDS ORDERED: ECOTRIN PO SCH (10:00)
[2018-07-24] MEDS: PROTONIX PO SCH (10:07)
[2018-07-24] MEDS: DIOVAN PO SCH (10:08)
[2018-07-24] MEDS ORDERED: HEPARIN/NS 5000 UNIT/500ML(CATH LAB) 1,000 ML IR ONE (11:08)
[2018-07-24] MEDS ORDERED: HEPARIN 10,000 UNITS/10 ML ONE (11:09)
[2018-07-24] MEDS ORDERED: NACL 0.9% 500 ML 500 ML ONE (11:29)
[2018-07-24] MEDS: VERSED ONE ×3 (11:33→12:04)
[2018-07-24] MEDS: XYLOCAINE 2% INFILTRATI ONE ×2 (11:33→11:53)
[2018-07-24] MEDS: SUBLIMAZE ONE ×3 (11:33→12:04)
[2018-07-24] MEDS: NITROGLYCERIN SYRINGE 3 ML ONE ×2 (11:33→11:58)
[2018-07-24] MEDS: CALAN ONE ×2 (11:34→11:58)
[2018-07-24] MEDS ORDERED: ANGIOMAX IV ONE (11:52)
[2018-07-24] MEDS ORDERED: NACL 0.9% 500 ML 1,000 ML ONE (11:52)
[2018-07-24] MEDS ORDERED: NACL 0.9% 100 ML ONE (11:53)
[2018-07-24] MEDS ORDERED: CATAPRES PO ONE (12:43)
[2018-07-24] MEDS ORDERED: CATAPRES ONE (13:12)
--- NOTE | 2018-07-24 13:51 | Progress Note ---
Assessment and Plan Chest pain Abnormal ECG NSTEMI Cardiac cath - hazy, and calcified distal left main, 70-80% proximal RCA and 70% mid circumflex LVEF 60% by Lv gram Hx of Aortic aneurysm rupture s/p endovascular repair of aortic psedoaneurysm Hypertension - uncontrolled History of DVT s/p IVC filter PVD s/p right AKA History of gastric bypass surgery Tobacco abuse Marked sinus bradycardia with Wenckebach AV block during hours of sleep. no orlin-arrhythmias while awake. Recommendations: Angiograms reviewed by interventional cardiology. The distal left main lesion is thought to be significant angiographically. Recommend transfer to [facility] for revascularization strategy. Subjective Date of service: 07/24/18 Principal diagnosis: NSTEMI Interval history: Patient underwent a cardiac cath today without complications Objective Vital Signs Temp Pulse Pulse Pulse Resp BP BP 07/24/18 13:42 57 L 12 199/83 07/24/18 13:30 61 14 198/99 07/24/18 13:24 59 L 192/103 07/24/18 13:15 64 18 192/103 07/24/18 13:14 78 20 07/24/18 13:00 67 18 183/89 07/24/18 12:45 58 L 18 189/82 07/24/18 12:36 98.5 F 70 20 200/87 07/24/18 10:12 62 177/78 07/24/18 07:25 98.4 F 67 18 199/92 07/24/18 04:30 98.2 F 56 L 17 190/91 07/24/18 02:00 56 L 07/23/18 23:56 98.4 F 61 18 197/82 07/23/18 22:00 67 74 18 07/23/18 21:54 69 188/97 07/23/18 20:11 07/23/18 19:43 98.5 F 74 17 188/97 07/23/18 18:13 65 07/23/18 15:43 98.0 F 72 14 199/94 Pulse Ox 07/24/18 13:42 98 07/24/18 13:30 99 07/24/18 13:24 07/24/18 13:15 99 07/24/18 13:14 97 07/24/18 13:00 98 07/24/18 12:45 97 02/08/19 12:36 96 07/24/18 10:12 07/24/18 07:25 99 07/24/18 04:30 98 07/24/18 02:00 07/23/18 23:56 98 07/23/18 22:00 07/23/18 21:54 07/23/18 20:11 98 07/23/18 19:43 94 07/23/18 18:13 07/23/18 15:43 96 - Physical Examination HEENT: Positive: PERRL Neck: Positive: trachea midline Cardiac: Positive: Reg Rate and Rhythm Lungs: Positive: Normal Exam Neuro: Positive: Grossly Intact Extremities: Present: Other (right AKA)
[2018-07-24] MEDS ORDERED: CATAPRES PO NR (14:00)
--- NOTE | 2018-07-24 15:08 | Discharge Summary ---
Providers - Providers Date of Admission: 07/23/18 01:12 Attending physician: JETT COTTON MD 07/23/18 Consult to Cardiac Rehabilitation [CONS] Routine Reason For Exam: Phase I 07/23/18 02:00 Consult to Cardiology [CONS] Routine Consulting Provider: VIRGIL CANCINO Reason For Exam: chest pain, elevated troponin 07/23/18 05:40 Consult to Cardiology [CONS] Routine Consulting Provider: VIRGIL CANCINO Reason For Exam: chest pain Primary care physician: FOUZIA ALVAREZ Hospitalization Condition: Stable Hospital course: 67-year-old woman who presented with chest pain, she was diagnosed with non- STEMI. She was medically treated. She went on to have a left heart cath which showed significant left main lesion, therefore she was transferred to for revascularization strategy. Diagnoses Acute SC Non-STEMI Hypertension, uncontrolled History of DVT status post IVC filter Peripheral vascular disease status post right AKA History of gastric bypass surgery Tobacco abuse Dis[facility] Time spent for discharge: 40 minutes Core Measure Documentation - Palliative Care Palliative Care/ Comfort Measures: Not Applicable - Core Measures Any of the following diagnoses?: acute SC - Acute SC Discharge Requirements Aspirin at discharge: Yes ALISIA/ARB for LVSD if EF <40%: Yes Beta brian at discharge: Yes Statin for LDL = or >100 mg/dl on DC: Yes Exam - Constitutional Vitals: Temp Pulse Resp BP Pulse Ox 98.5 F 62 18 200/88 99 07/24/18 12:36 07/24/18 14:30 07/24/18 14:30 07/24/18 14:30 07/24/18 14:30 General appearance: Present: no acute distress, well-nourished - EENT Eyes: Present: PERRL ENT: hearing intact, clear oral mucosa - Neck Neck: Present: supple, normal ROM - Respiratory Respiratory effort: normal Respiratory: bilateral: CTA - Cardiovascular Heart Sounds: Present: S1 & S2. Absent: rub, click - Extremities Extremities: pulses symmetrical, No edema Peripheral Pulses: within normal limits - Abdominal General gastrointestinal: Present: soft, non-tender, non-distended, normal bowel sounds Female genitourinary: Present: normal - Integumentary Integumentary: Present: clear, warm, dry - Musculoskeletal Musculoskeletal: gait normal, strength equal bilaterally - Psychiatric Psychiatric: appropriate mood/affect, intact judgment & insight - Neurologic Neurologic: CNII-XII intact, moves all extremities Plan Follow up with: FOUZIA ALVAREZ MD [Primary Care Provider] - 3-5 Days
[2018-07-24] MEDS: DITROPAN XL PO SCH (15:41)
[2018-07-24] MEDS: HCTZ PO SCH (15:41)
[2018-07-24] MEDS: FEOSOL PO SCH (15:41)
[2018-07-24] MEDS: SODIUM CHLORIDE FLUSH SYRINGE 10 ML IV SCH (15:42)
[2018-07-24] MEDS: SENOKOT PO SCH (15:42)
[2018-07-24 21:02] VITALS: BP 157/83
[2018-07-25] MEDS ORDERED: PROCARDIA XL PO SCH (10:00)
--- NOTE | 2018-07-31 11:33 | Cardiac Catherization Report ---
LEFT HEART CATHETERIZATION INDICATION FOR PROCEDURE: Unstable angina. ORDERING PHYSICIAN: Alexa Corral MD PROCEDURES PERFORMED: 1. Selective left and right coronary angiography. 2. Left ventriculography. DESCRIPTION OF PROCEDURE: After obtaining written consent, the patient was draped using sterile technique. 2% lidocaine was injected into the patient's right wrist. A 6-Croatian vascular sheath was inserted into the right radial artery. A 6-Croat[place] JL3.5 catheter was used to selectively engage the left coronary artery. A 6-[place] JR4 catheter was used to selectively engage the right coronary artery. A 6-[place]at[place] JR4 catheter was used to hand inject a left ventriculogram. No complications occurred during the procedure. Hemostasis was achieved at the end of the procedure using manual pressure. SPECIMEN REMOVED: None. ESTIMATED BLOOD LOSS: Minimal. SEDATION ADMINISTERED: 1 mg of IV Versed and 50 mcg of IV fentanyl. Physician and patient [id number] sedation start time is 11:50 a.m. Physician and patient [id number] sedation stop time is 12:25 p.m. Total sedation time was 35 minutes. FINDINGS: HEMODYNAMICS: 1. The aortic pressure was 208/82. Left ventricular systolic pressure was 208 mmHg. 2. The left ventricular end-diastolic pressure was measured at 22 mmHg. 3. There was no significant gradient across left ventricular outflow tract. CARDIAC STRUCTURES: The left ventricle is normal in size. The left ventricular ejection fraction is estimated at 60% with normal wall motion. The aorta is normal in size. There is diffuse atherosclerosis noted through the aortic root and the ascending aorta. CORONARY ANATOMY: 1. This is a right dominant circulation. 2. The left main has evidence of a distal hazy and calcified stenosis that is likely to be significantly obstructive. There are also heavy calcifications involving the proximal LAD with approximately 50-60% luminal stenosis. The remaining LAD appears to be patent with 10-20% diffuse luminal disease. The diagonal arteries are free of any significant obstructive disease. 3. The left circumflex artery exhibits evidence of 70% stenosis in the mid segment. The OM1 and the PLOMs are patent. The AV groove vessel is also patent. 4. The right coronary artery is diffusely and heavily calcified. There is evidence of severe diffuse disease in the proximal right coronary artery. There is 80% luminal compromise of the proximal right coronary artery. The remaining segments of the right coronary artery are diffusely diseased with no focal obstructive stenosis. IMPRESSION: 1. Evidence of hazy probably obstructive distal left main stenosis with a heavily calcified 60% proximal LAD, 70% mid circumflex stenosis. 2. 80% proximal right coronary artery stenosis. 3. Normal left ventricular size and systolic function. 4. Heavily calcified coronaries with evidence of calcification also involving the aortic root. 5. LVEDP measured at 22 mmHg. RECOMMENDATIONS: We have reviewed the angiograms with Dr. Corral, who believes that the left main lesion is obstructive and IVUS is not warranted. Therefore, the patient will be recommended for evaluation by Cardiothoracic Surgery for potential bypass. The patient will be transferred to [facility] in [place] for further evaluation. JOB# [id number] KADE/MEHDI
== END 2018-07-24 21:11 | disposition short-term general hospital (02) | DRG 281 ==
LOC: ED 23:19 → 4A 07-23 01:12
PROVIDERS: ADMIT Internal Medicine; ATTEND Internal Medicine
DX: I21.4 Non-ST elevation (NSTEMI) myocardial infarction (principal); E87.1 Hypo-osmolality and hyponatremia; F17.200 Nicotine dependence, unspecified, uncomplicated; I25.10 Atherosclerotic heart disease of native coronary artery without angina pectoris; I50.9 Heart failure, unspecified; I11.0 Hypertensive heart disease with heart failure; F17.210 Nicotine dependence, cigarettes, uncomplicated; Z86.718 Personal history of other venous thrombosis and embolism; Z79.01 Long term (current) use of anticoagulants; Z89.611 Acquired absence of right leg above knee; Z98.0 Intestinal bypass and anastomosis status; Z90.49 Acquired absence of other specified parts of digestive tract; Z82.49 Family history of ischemic heart disease and other diseases of the circulatory system; Z88.2 Allergy status to sulfonamides; Z91.048 Other nonmedicinal substance allergy status
CPT/HCPCS: 36415; 71045; 80048; 80061; 82962; 83036; 83735; 84439; 84443; 84484; 85025; 85610; 93005; 93010; 93458; 94760; 96374; 96375; G0378; C1894; J0360; J0583; J1644; J1650; J2250; J2270; J3010; J7040; Q9967

== ENCOUNTER 2018-11-01 04:24 | Inpatient (IN) | payer MEDICARE, OTHER ==
[2018-11-01] MEDS: NITROSTAT SL PRN ×2 (04:55→05:05)
[2018-11-01 05:14] LABS: Basophils # (Auto) 0.2 K/mm3 (0.0-0.1); Basophils % (Auto) 1.4 % (0.0-1.8); Eosinophils # (Auto) 0.1 K/mm3 (0.0-0.4); Eosinophils % (Auto) 0.8 % (0.0-4.3); Hematocrit 34.2 % (30.3-42.9); Hemoglobin 11.8 gm/dl (10.1-14.3); Lymphocytes # (Auto) 1.8 K/mm3 (1.2-5.4); Mean Corpuscular HGB Conc 35 % (30-34); Mean Corpuscular Volume 88 fl (79-97); Monocytes # (Auto) 0.8 K/mm3 (0.0-0.8); Monocytes % (Auto) 5.3 % (0.0-7.3); Platelet Count 286 K/mm3 (140-440); Red Blood Count 3.88 M/mm3 (3.65-5.03); Red Cell Distribution Width 19.3 % (13.2-15.2)
[2018-11-01] MEDS ORDERED: MORPHINE ONE ×2 (05:14→08:54)
[2018-11-01] MEDS ORDERED: MORPHINE IV ONE ×2 (05:14→05:47)
[2018-11-01 05:35] LABS: Alanine Aminotransferase 27 units/L (7-56); Albumin 3.3 g/dL (3.9-5); BUN/Creatinine Ratio 23; Blood Urea Nitrogen 25 mg/dL (7-17); Calcium 8.7 mg/dL (8.4-10.2); Hemolysis Index 3
--- NOTE | 2018-11-01 05:42 | XRay Report ---
PROCEDURE: XR CHEST 1V AP TECHNIQUE: Chest radiograph single view. HISTORY: Chest Pain COMPARISONS: None . FINDINGS: Heart: Normal. Mediastinum/Vessels: Normal. Lungs/Pleural space: Normal. Bony thorax: No acute osseous abnormality. Life support devices: None. IMPRESSION: No acute cardiopulmonary abnormality. This document is electronically signed by Eloy Red MD., Nov 01 2018 05:40:59 AM ET
[2018-11-01 05:46] LABS: LDL Cholesterol,Direct 46 mg/dL (50-130)
--- NOTE | 2018-11-01 05:54 | Emergency Department Report ---
ED Chest Pain HPI - General Chief Complaint: Chest Pain Stated Complaint: CP/FLANK PAIN Time Seen by Provider: 11/01/18 04:32 Source: patient, EMS, old records reviewed Mode of arrival: Stretcher Limitations: Physical Limitation - History of Present Illness Initial Comments: Mrs. Allan is a 68 yo female with history of CAD status post cardiac stent earlier this year, peripheral vascular disease right AKA, hypertension, DVT, Tobacco abuse who presents with severe left-sided chest pain "soreness" for the majority of the day. Mild shortness of breath. Arrived per EMS. Tax Manager Dr. Essence Blue PCP Dr. Nori Bryant MD Complaint: chest pain -: Gradual, days(s) (1) Onset: during rest Pain Radiation: LUE Severity: severe Severity scale (0 -10): 10 Quality: aching, sharp Consistency: constant Improves With: nothing Worsens With: nothing Context: recent illness (3 months ago July heart cath, PTCA) - Related Data Home Medications Medication Instructions Recorded Confirmed Last Taken Hyoscyamine Sulfate [Hyoscyamine 0.125 mg PO Q6H PRN 04/22/17 07/23/18 12/02/17 Rapdis 0.125 mg] Oxybutynin Chloride [Ditropan Xl] 10 mg PO DAILY 04/22/17 07/23/18 12/02/17 Previous Rx's Medication Instructions Recorded Last Taken Type Pantoprazole [Protonix TAB] 40 mg PO QDAY #30 tablet 03/22/17 12/02/17 Rx Oxycodone HCl/Acetaminophen 1 each PO Q6HR PRN #15 tablet 12/05/17 Unknown Rx [Percocet 10/325 mg] Polyethylene Glycol 3350 [Miralax 17 gm PO BID PRN #60 powd.pack 12/05/17 Unknown Rx 3350] Sennosides Tab [Senokot] 8.6 mg PO Q12HR #60 tablet 12/05/17 Unknown Rx Carvedilol [Coreg] 25 mg PO BID #60 tablet 01/17/18 Unknown Rx Valsartan [Diovan] 160 mg PO BID #60 tablet 01/17/18 Unknown Rx hydroCHLOROthiazide [HCTZ] 25 mg PO QDAY #30 capsule 01/17/18 Unknown Rx Acetaminophen [Acetaminophen TAB] 650 mg PO Q4H PRN tablet 07/24/18 Unknown Rx Aspirin EC [Aspirin Enteric Coated 325 mg PO QDAY tablet 07/24/18 Unknown Rx TAB] Ferrous Sulfate [Feosol 325 MG tab] 325 mg PO BID tablet 07/24/18 Unknown Rx Hyoscyamine Subl [Levsin Sl 0.125 0.125 mg SL Q6H PRN tablet 07/24/18 Unknown Rx TAB] NIFEdipine XL [Procardia Xl] 60 mg PO QDAY tablet 07/24/18 Unknown Rx Ondansetron [Zofran INJ] 4 mg IV Q8H PRN vial 07/24/18 Unknown Rx Oxybutynin Xl [Ditropan Xl] 10 mg PO QDAY tablet 07/24/18 Unknown Rx hydroCHLOROthiazide [HCTZ] 25 mg PO QDAY tablet 07/24/18 Unknown Rx oxyCODONE /ACETAMINOPHEN [Percocet 1 tab PO Q6H PRN tablet 07/24/18 Unknown Rx 5/325 mg] Allergies Allergy/AdvReac Type Severity Reaction Status Date / Time heparin Allergy Unknown Verified 04/17/18 07:36 Sulfa (Sulfonamide Allergy Unknown Verified 05/14/17 15:58 Antibiotics) Heart Score - HEART Score History: Highly suspicious EKG: Non-specific Age: > 65 Risk factors: > 3 risk factors or hx of atherosclerotic disease Troponin: 1-3x normal limit HEART Score: 8 ED Review of Systems ROS: Stated complaint: CP/FLANK PAIN Other details as noted in HPI Comment: All other systems reviewed and negative Constitutional: denies: fever, malaise Respiratory: shortness of breath. denies: cough Cardiovascular: chest pain ED Past Medical Hx - Past Medical History Previous Medical History?: Yes Hx Hypertension: Yes Hx Congestive Heart Failure: No Hx Diabetes: No Hx Deep Vein Thrombosis: No Hx Renal Disease: Yes (CKD, stage 3) Hx Asthma: No Hx COPD: Yes Additional medical history: h/o C-DIFF, RT BKA 2017,anemia with blood transfusion, 2 cardiac stents August 2018 - Surgical History Past Surgical History?: Yes Hx Pacemaker: No Hx Internal Defibrillator: No Hx Cholecystectomy: Yes Hx Appendectomy: Yes Additional Surgical History: Endovascular aortic stent graft, femoral femoral bypass, IVC filter - Social History Smoking Status: Current Every Day Smoker - Medications Home Medications: Home Medications Medication Instructions Recorded Confirmed Last Taken Type Pantoprazole [Protonix TAB] 40 mg PO QDAY #30 tablet 03/22/17 07/23/18 12/02/17 Rx Hyoscyamine Sulfate [Hyoscyamine 0.125 mg PO Q6H PRN 04/22/17 07/23/18 12/02/17 History Rapdis 0.125 mg] Oxybutynin Chloride [Ditropan Xl] 10 mg PO DAILY 04/22/17 07/23/18 12/02/17 History Oxycodone HCl/Acetaminophen 1 each PO Q6HR PRN #15 tablet 12/05/17 07/23/18 Unknown Rx [Percocet 10/325 mg] Polyethylene Glycol 3350 [Miralax 17 gm PO BID PRN #60 powd.pack 12/05/17 07/23/18 Unknown Rx 3350] Sennosides Tab [Senokot] 8.6 mg PO Q12HR #60 tablet 12/05/17 07/23/18 Unknown Rx Carvedilol [Coreg] 25 mg PO BID #60 tablet 01/17/18 07/23/18 Unknown Rx Valsartan [Diovan] 160 mg PO BID #60 tablet 01/17/18 07/23/18 Unknown Rx hydroCHLOROthiazide [HCTZ] 25 mg PO QDAY #30 capsule 01/17/18 07/23/18 Unknown Rx Acetaminophen [Acetaminophen TAB] 650 mg PO Q4H PRN tablet 07/24/18 Unknown Rx Aspirin EC [Aspirin Enteric Coated 325 mg PO QDAY tablet 07/24/18 Unknown Rx TAB] Ferrous Sulfate [Feosol 325 MG tab] 325 mg PO BID tablet 07/24/18 Unknown Rx Hyoscyamine Subl [Levsin Sl 0.125 0.125 mg SL Q6H PRN tablet 07/24/18 Unknown Rx TAB] NIFEdipine XL [Procardia Xl] 60 mg PO QDAY tablet 07/24/18 Unknown Rx Ondansetron [Zofran INJ] 4 mg IV Q8H PRN vial 07/24/18 Unknown Rx Oxybutynin Xl [Ditropan Xl] 10 mg PO QDAY tablet 07/24/18 Unknown Rx hydroCHLOROthiazide [HCTZ] 25 mg PO QDAY tablet 07/24/18 Unknown Rx oxyCODONE /ACETAMINOPHEN [Percocet 1 tab PO Q6H PRN tablet 07/24/18 Unknown Rx 5/325 mg] ED Physical Exam - General Limitations: Physical Limitation General appearance: alert, in no apparent distress, other (appears in pain, chronically ill ) - Head Head exam: Present: atraumatic, normocephalic - Eye Eye exam: Present: normal appearance - ENT ENT exam: Present: mucous membranes moist - Neck Neck exam: Present: normal inspection, full ROM - Respiratory Respiratory exam: Present: normal lung sounds bilaterally. Absent: respiratory distress, wheezes, rales, rhonchi - Cardiovascular Cardiovascular Exam: Present: regular rate, normal rhythm, normal heart sounds. Absent: systolic murmur, diastolic murmur, rubs, gallop - GI/Abdominal GI/Abdominal exam: Present: soft, normal bowel sounds. Absent: distended, tenderness, guarding, rebound - Extremities Exam Extremities exam: Present: other (right AKA) - Back Exam Back exam: Present: normal inspection - Neurological Exam Neurological exam: Present: alert, oriented X3 - Psychiatric Psychiatric exam: Present: normal affect, anxious - Skin Skin exam: Present: warm, dry, intact, normal color. Absent: rash ED Course Vital Signs 11/01/18 11/01/18 04:34 04:41 Temperature 99.0 F Pulse Rate 82 Respiratory 16 16 Rate Blood Pressure 166/82 O2 Sat by Pulse 100 98 Oximetry ED Medical Decision Making - Lab Data Result diagrams: 11/01/18 04:56 11/01/18 04:56 Laboratory Results - last 24 hr 11/01/18 11/01/18 04:56 04:56 WBC 15.3 H RBC 3.88 Hgb 11.8 Hct 34.2 MCV 88 MCH 31 MCHC 35 H RDW 19.3 H Plt Count 286 Lymph % (Auto) 12.0 L Taylor % (Auto) 5.3 Eos % (Auto) 0.8 Baso % (Auto) 1.4 Lymph # 1.8 Taylor # 0.8 Eos # 0.1 Baso # 0.2 H Seg Neutrophils % 80.5 H Seg Neutrophils # 12.3 H Sodium 141 Potassium 3.3 L Chloride 104.5 Carbon Dioxide 21 L Anion Gap 19 BUN 25 H Creatinine 1.1 Estimated GFR > 60 BUN/Creatinine Ratio 23 Glucose 106 H Calcium 8.7 Total Bilirubin 0.30 AST 28 ALT 27 Alkaline Phosphatase 168 H Troponin T 0.087 H Total Protein 7.9 Albumin 3.3 L Albumin/Globulin Ratio 0.7 Triglycerides 100 Cholesterol 97 LDL Cholesterol Direct 46 L - EKG Data 11/01/18 05:52 EKG obtained 0446 Normal sinus rhythm rate 95 beats a minute normalaxis prolonged QT interval no significant ST elevation positive LVH with repolarization abnormality inferior Q waves anterior Q waves - Radiology Data Radiology results: report reviewed AP portable chest no acute process according to radiology impression - Medical Decision Making Mrs. Allan presents with chest pain high risk for ACS recent NSTEMI with PTCA, [facility] in July. Heart Score 8. Admitted to hospitalist service in fair condition Critical care attestation.: If time is entered above; I have spent that time in minutes in the direct care of this critically ill patient, excluding procedure time. ED Disposition Clinical Impression: Acute coronary syndrome, Hypertensive urgency Disposition: OP ADMIT IP TO THIS HOSP Is pt being admited?: Yes Does the pt Need Aspirin: No Condition: Stable
[2018-11-01] MEDS: NITRO-BID 2% TP ONE ×2 (06:05→06:08)
[2018-11-01 06:08] LABS: Chol/HDL Ratio 2.36 %; HDL Cholesterol 41 mg/dL (40-59)
[2018-11-01] MEDS ORDERED: TYLENOL PO PRN (06:08)
[2018-11-01] MEDS ORDERED: SODIUM CHLORIDE FLUSH SYRINGE 10 ML IV PRN (06:08)
[2018-11-01] MEDS ORDERED: ZOFRAN IV PRN (06:08)
--- NOTE | 2018-11-01 06:23 | History and Physical Report ---
History of Present Illness Date of examination: 11/01/18 History of present illness: 68-year-old man with history of hypertension, coronary artery disease, status post recent stent, GERD, PVD comes to the ER for evaluation of chest pain, epigastric area, sharp, radiating across the chest to the left side, intensity, 5/10. constant, cannot identify exacerbating factors. She had a follow-up appointment with rotary drill operator on October 22, everything was well. She states she is compliant with her medications. Denies nausea vomiting, shortness breath, diaphoresis or palpitation Review of systems Review of systems Constitutional: no weight loss, chills, fever Ears, eyes, nose, mouth and throat: no nasal congestion, no nasal discharge, no sinus pressure, no vision change, no red eye. Neck: No neck pain or rigidity. Cardiovascular: no palpitations Respiratory: no cough, shortness of breath Gastrointestinal: no hematochezia, abdominal pain Genitourinary : no frequency , no hematuria Musculoskeletal: no joint swelling or muscle ache Integumentary: no rash, no pruritis Neurological: no parathesias, no focal weakness Endocrine: no cold or heat intolerance, no polyuria or polydipsia Hematologic/Lymphatic: no easy bruising, no easy bleeding, no gland swelling Allergic/Immunologic: no urticaria, no angioedema. PAST MEDICAL HISTORY: hypertension, Gerd, coronary artery disease, h/o Aneurysm rupture, PVD PAST SURGICAL HISTORY: AKA, aneurysm repair, gastric bypass SOCIAL HISTORY: No alcohol abuse, drugs, smokes 5 cigarettes a day FAMILY HISTORY: Hypertension Medications and Allergies Allergies Allergy/AdvReac Type Severity Reaction Status Date / Time heparin Allergy Unknown Verified 04/17/18 07:36 Sulfa (Sulfonamide Allergy Unknown Verified 05/14/17 15:58 Antibiotics) Home Medications Medication Instructions Recorded Confirmed Last Taken Type Pantoprazole [Protonix TAB] 40 mg PO QDAY #30 tablet 03/22/17 11/01/18 12/02/17 Rx Hyoscyamine Sulfate [Hyoscyamine 0.125 mg PO Q6H PRN 04/22/17 11/01/18 12/02/17 History Rapdis 0.125 mg] Oxybutynin Chloride [Ditropan Xl] 10 mg PO DAILY 04/22/17 11/01/18 12/02/17 History Polyethylene Glycol 3350 [Miralax 17 gm PO BID PRN #60 powd.pack 12/05/17 11/01/18 Unknown Rx 3350] Sennosides Tab [Senokot] 8.6 mg PO Q12HR #60 tablet 12/05/17 11/01/18 Unknown Rx Valsartan [Diovan] 160 mg PO BID #60 tablet 01/17/18 11/01/18 Unknown Rx Acetaminophen [Acetaminophen TAB] 650 mg PO Q4H PRN tablet 07/24/18 11/01/18 Unknown Rx Aspirin EC 325 mg PO QDAY tablet 07/24/18 11/01/18 Unknown Rx Hyoscyamine Subl [Levsin Sl 0.125 0.125 mg SL Q6H PRN tablet 07/24/18 11/01/18 Unknown Rx TAB] AtorvaSTATin [Lipitor] 40 mg PO QHS 11/01/18 11/01/18 Unknown History Clopidogrel [Plavix] 75 mg PO QDAY 11/01/18 11/01/18 Unknown History Furosemide [Lasix TAB] 40 mg PO QDAY 11/01/18 11/01/18 Unknown History amLODIPine [Norvasc] 5 mg PO DAILY 11/01/18 11/01/18 Unknown History Carvedilol [Coreg] 6.25 mg PO BID #60 tablet 11/02/18 Unknown Rx oxyCODONE /ACETAMINOPHEN [Percocet 1 tab PO Q6H PRN #10 tablet 11/02/18 Unknown Rx 5/325 mg] Active Meds: Active Medications Acetaminophen (Tylenol) 650 mg PO Q4H PRN PRN Reason: Pain MILD(1-3)/Fever >100.5/[place] Morphine Sulfate (Morphine) 2 mg IV Q4H PRN PRN Reason: Pain, Moderate (4-6) Nitroglycerin (Nitrostat) 0.4 mg SL .Q5MIN PRN PRN Reason: Chest Pain Last Admin: 11/01/18 05:05 Dose: 0.4 mg Documented by: Ondansetron HCl (Zofran) 4 mg IV Q8H PRN PRN Reason: Nausea And Vomiting Sodium Chloride (Sodium Chloride Flush Syringe 10 Ml) 10 ml IV BID TERESA Sodium Chloride (Sodium Chloride Flush Syringe 10 Ml) 10 ml IV PRN PRN PRN Reason: LINE FLUSH Exam - Physical Exam Narrative exam: Gen. appearance: Patient lying in bed, no apparent distress HEENT: Normocephalic, atraumatic, pupils equally round and reactive to light, extraocular movement intact, and no sclericterus,. No JVD or thyromegaly or nodule,neck supple, no carotid bruit ,mucous membranes dry, no exudate or erythema Heart: S1, S2, regular rate and rhythm Lungs: Clear bilaterally, breathing comfortable Abdomen: Positive bowel sounds, nontender, nondistended, no organomegaly Extremity: Right AKA no edema cyanosis, clubbing Neuro: Oriented 3, cranial nerves II-12 intact, speech is fluent, motor and sensory intact - Constitutional Vitals: Temp Pulse Resp BP Pulse Ox 99.0 F 96 H 15 168/98 93 11/01/18 04:34 11/01/18 06:00 11/01/18 06:00 11/01/18 06:00 11/01/18 06:00 Results - Labs CBC & Chem 7: 11/03/18 05:08 11/03/18 05:08 Labs: Abnormal lab results 11/01/18 11/01/18 Range/Units 04:56 04:56 WBC 15.3 H (4.5-11.0) K/mm3 MCHC 35 H (30-34) % RDW 19.3 H (13.2-15.2) % Lymph % (Auto) 12.0 L (13.4-35.0) % Baso # 0.2 H (0.0-0.1) K/mm3 Seg Neutrophils % 80.5 H (40.0-70.0) % Seg Neutrophils # 12.3 H (1.8-7.7) K/mm3 Potassium 3.3 L (3.6-5.0) mmol/L Carbon Dioxide 21 L (22-30) mmol/L BUN 25 H (7-17) mg/dL Glucose 106 H (65-100) mg/dL Alkaline Phosphatase 168 H (35-129) units/L Troponin T 0.087 H (0.00-0.029) ng/mL Albumin 3.3 L (3.9-5) g/dL LDL Cholesterol Direct 46 L (50-130) mg/dL - Imaging and Cardiology Abdominal x-ray: report reviewed Assessment and Plan Assessment Unstable angina SIRS Coronary artery disease hypertension GERD PVD Plan Admit to medicine Check cardiac enzymes, CT abdomen and pelvis, consult cardiology Continue appropiate outpatient medications, IV morphine Obtain blood cultures, urinalysis, start empiric Levaquin Replete potassium DVT prophalaxis
[2018-11-01] MEDS ORDERED: K-DUR PO ONE ×2 (06:33→06:43)
[2018-11-01] MEDS: LEVAQUIN 750MG/150ML 750 MG/150 ML BAG IV SCH ×2 (06:34→07:18)
[2018-11-01] MEDS ORDERED: LEVAQUIN 750MG/150ML 750 MG/150 ML BAG IV ONE (07:00)
[2018-11-01 07:40] LABS: Creatine Kinase MB 1.1 ng/mL (0.0-4.0)
--- NOTE | 2018-11-01 08:15 | Cat Scan Report ---
PROCEDURE: CT ABDOMEN PELVIS WO CON TECHNIQUE: CT imaging is obtained through the abdomen and pelvis without contrast HISTORY: epigastric pain COMPARISONS: 04/17/2018 FINDINGS: Imaged intrathoracic contents are remarkable for cardiomegaly and left greater than right pleural eff usions with associated compressive atelectasis. Pericardial effusion. Kidneys show cortical irregularity and scarring. Several renal cysts are present measuring up to 17 m m. 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 A nonobstructive right renal stone measures up to 9 mm. Renal vascular calcification. No hydroureteronephrosis. Anteverted uterus with s mall fibroid associated calcifications. No free fluid in the pelvis. There is thickening of the adrenal glands without focal nodule. Cholecystectomy. The spleen and pancr eas demonstrate an unremarkable noncontrast appearance. Anterior to the left hepatic lobe on axial series 2, image 41 there is a subcapsular 4 x 6.5 x 5.5 cm lesion with mild adjacent fluid. Prior gastric bypass. No evident obstruction. No findings of appendicitis. Hollow enteric organs are normal in course and caliber. Appendix is normal. No intra-abdominal free air/fluid or lymphadenopath y. Aorta is normal in course and caliber. Extensive atherosclerosis. Aortoiliac stent and femorofemoral bypass. An IVC filter is present. Superficial soft tissues are otherwise unremarkable. No acute or aggressive appearing skeletal findin gs. IMPRESSION: Left hepatic subcapsular lesion measuring up to 6.5 cm may represent abscess, hematoma or neoplasm. T his finding is new compared to April 2018. Correlation with patient's symptoms is requested. Consi mariel follow-up MRI with contrast. Multiple additional chronic and postsurgical findings as detailed above. Dr. Garcia discussed findings with Dr. Ribeiro at 0703 [address] Time on 11/01/2018 immediately following the examination. This document is electronically signed by Maximiliano Garcia MD., Nov 01 2018 08:13:01 AM ET
[2018-11-01] MEDS: MORPHINE IV PRN ×3 (09:00→21:22)
[2018-11-01] MEDS ORDERED: HEPARIN 10,000 UNITS/10 ML IV ONE (10:13)
[2018-11-01 10:55] LABS: Hemoglobin 11.3 gm/dl (10.1-14.3)
[2018-11-01] MEDS ORDERED: ECOTRIN PO SCH (11:00)
[2018-11-01] MEDS ORDERED: HEPARIN/ 0.45% NACL-25,000 UNIT/500 ML 25,000 UNIT/500 ML BAG IV SCH (11:00)
[2018-11-01 11:08] LABS: INR 1.04 (0.87-1.13); Partial Thromboplastin Time 35.5 Sec. (24.2-36.6)
[2018-11-01 11:55] LABS: Hematocrit 34.3 % (30.3-42.9)
[2018-11-01] MEDS: PERCOCET 5/325 PO PRN ×2 (11:57→17:08)
[2018-11-01 12:34] LABS: Creatine Kinase MB 1.3 ng/mL (0.0-4.0)
[2018-11-01] MEDS: PROTONIX PO SCH (12:42)
[2018-11-01] MEDS: DITROPAN XL PO SCH (12:49)
[2018-11-01] MEDS: SODIUM CHLORIDE FLUSH SYRINGE 10 ML IV SCH ×2 (12:55→21:23)
[2018-11-01] MEDS: LOVENOX SUB-Q SCH ×2 (13:23→21:21)
--- NOTE | 2018-11-01 13:23 | Event Note ---
Date: 11/01/18 67-year-old man with history of hypertension, coronary artery disease, status post recent stent, GERD, PVD comes to the ER for evaluation of chest pain, patient is allergic to heparin, troponin elevated will place on lovenox therapeutic dose follow cardiology recommendation Ct abdomen with possible left hepatic mass - order MRI
[2018-11-01 14:55] LABS: Bacteria,Urine 2+ /HPF (Negative); Bilirubin,Urine NEG (Negative); Blood,Urine SM (Negative); Color,Urine Amber (Yellow); Mucus,Urine FEW /HPF; Urobilinogen,Urine < 2.0 mg/dL (<2.0)
[2018-11-01] MEDS ORDERED: TORADOL IV PRN (14:56)
--- NOTE | 2018-11-01 15:02 | Consultation ---
History of Present Illness Consult date: 11/01/18 Consult reason: chest pain History of present illness: The patient is a 68-year-old woman with multivessel coronary disease. 2 months ago, a cardiac catheterization in this hospital revealed calcified three-vessel disease including significant distal left main disease. Her left ventricular ejection fraction was normal. She was referred to [facility] for coronary bypass evaluation, but turned down for bypass due to multiple comorbidities. As a result, she underwent what she describes as high-risk two- vessel staged coronary intervention presumably to the right coronary artery and the left main/LAD vessels. The details of her coronary interventions are not available for review. Following that, she has been steadfastly compliant with her dual antiplatelet therapy aspirin and Plavix, and has had no further angina. She is admitted to the hospital at this time with left sided chest pain which is nonexertional, and not reminiscent of her prior angina. Specifically, during my examination she has palpable tenderness to the left chest wall, which reproduces her pain. Her pain is also positional and has a mild pleuritic component. The patient otherwise looks and feels well. ECG is in normal sinus rhythm, first-degree AV block, lateral ST and T-wave abnormality which is unchanged from her previous ECG tracings. No acute changes. Chest x-ray reports no acute changes. Past History Past Medical History: CAD Past Surgical History: PTCA, Other (right above-knee amputation) Medications and Allergies Allergies Allergy/AdvReac Type Severity Reaction Status Date / Time heparin Allergy Unknown Verified 04/17/18 07:36 Sulfa (Sulfonamide Allergy Unknown Verified 05/14/17 15:58 Antibiotics) Home Medications Medication Instructions Recorded Confirmed Last Taken Type Pantoprazole [Protonix TAB] 40 mg PO QDAY #30 tablet 03/22/17 11/01/18 12/02/17 Rx Hyoscyamine Sulfate [Hyoscyamine 0.125 mg PO Q6H PRN 04/22/17 11/01/18 12/02/17 History Rapdis 0.125 mg] Oxybutynin Chloride [Ditropan Xl] 10 mg PO DAILY 04/22/17 11/01/18 12/02/17 History Oxycodone HCl/Acetaminophen 1 each PO Q6HR PRN #15 tablet 12/05/17 11/01/18 U nknown Rx [Percocet 10/325 mg] Polyethylene Glycol 3350 [Miralax 17 gm PO BID PRN #60 powd.pack 12/05/17 11/01/18 Unknown Rx 3350] Sennosides Tab [Senokot] 8.6 mg PO Q12HR #60 tablet 12/05/17 11/01/18 Unknown Rx Valsartan [Diovan] 160 mg PO BID #60 tablet 01/17/18 11/01/18 Unknown Rx hydroCHLOROthiazide [HCTZ] 25 mg PO QDAY #30 capsule 01/17/18 11/01/18 Unknown Rx Acetaminophen [Acetaminophen TAB] 650 mg PO Q4H PRN tablet 07/24/18 11/01/18 Unknown Rx Aspirin EC [Aspirin Enteric Coated 325 mg PO QDAY tablet 07/24/18 11/01/18 Unknown Rx TAB] Hyoscyamine Subl [Levsin Sl 0.125 0.125 mg SL Q6H PRN tablet 07/24/18 11/01/18 Unknown Rx TAB] Ondansetron [Zofran INJ] 4 mg IV Q8H PRN vial 07/24/18 11/01/18 Unknown Rx Oxybutynin Xl [Ditropan Xl] 10 mg PO QDAY tablet 07/24/18 11/01/18 Unknown Rx hydroCHLOROthiazide [HCTZ] 25 mg PO QDAY tablet 07/24/18 11/01/18 Unknown Rx oxyCODONE /ACETAMINOPHEN [Percocet 1 tab PO Q6H PRN tablet 07/24/18 11/01/18 Unknown Rx 5/325 mg] Amoxicillin/K Clav Tab [Augmentin 1 each PO Q8HR 11/01/18 11/01/18 Unknown History 500 MG TAB] AtorvaSTATin [Lipitor] 40 mg PO QHS 11/01/18 11/01/18 Unknown History Clopidogrel [Plavix] 75 mg PO QDAY 11/01/18 11/01/18 Unknown History Furosemide [Lasix TAB] 40 mg PO QDAY 11/01/18 11/01/18 Unknown History Sodium Bicarbonate 500 mg PO TID 11/01/18 11/01/18 Unknown History amLODIPine [Norvasc] 5 mg PO DAILY 11/01/18 11/01/18 Unknown History Active Meds: Active Medications Acetaminophen (Tylenol) 650 mg PO Q4H PRN PRN Reason: Pain MILD(1-3)/Fever >100.5/[place] Aspirin (Halfprin Ec) 81 mg PO QDAY [facility] Atorvastatin Calcium (Lipitor) 40 mg PO QHS [facility] Carvedilol (Coreg) 25 mg PO BID [facility] Clopidogrel Bisulfate (Plavix) 75 mg PO QDAY [facility] Enoxaparin Sodium (Lovenox) 60 mg SUB-Q Q12HR [facility] Last Admin: 11/01/18 13:23 Dose: 60 mg Documented by: Ferrous Sulfate (Feosol) 325 mg PO BID [facility] Hydralazine HCl (Apresoline) 5 mg IV Q6H PRN PRN Reason: Hypertension Levofloxacin/Dextrose (Levaquin 750mg/150ml) 750 mg in 150 mls @ 100 mls/hr IV Q48HR ONE Stop: 11/03/18 11:29 Ketorolac Tromethamine (Toradol) 30 mg IV Q8H PRN PRN Reason: Pain, Moderate (4-6) Stop: 11/03/18 14:55 Morphine Sulfate (Morphine) 2 mg IV Q4H PRN PRN Reason: Pain, Moderate (4-6) Last Admin: 11/01/18 14:43 Dose: 2 mg Documented by: Nicotine (Habitrol) 7 mg TD QDAY [facility] Nifedipine (Procardia Xl) 60 mg PO QDAY [facility] Nitroglycerin (Nitrostat) 0.4 mg SL .Q5MIN PRN PRN Reason: Chest Pain Last Admin: 11/01/18 05:05 Dose: 0.4 mg Documented by: Ondansetron HCl (Zofran) 4 mg IV Q8H PRN PRN Reason: Nausea And Vomiting Oxybutynin Chloride (Ditropan Xl) 10 mg PO QDAY [facility] Last Admin: 11/01/18 12:49 Dose: 10 mg Documented by: Oxycodone/Acetaminophen (Percocet 5/325) 1 tab PO Q6H PRN PRN Reason: Pain, Moderate (4-6) Last Admin: 11/01/18 11:57 Dose: 1 tab Documented by: Pantoprazole Sodium (Protonix) 40 mg PO QDAY [facility] Last Admin: 11/01/18 12:42 Dose: 40 mg Documented by: Sodium Chloride (Sodium Chloride Flush Syringe 10 Ml) 10 ml IV BID [facility] Last Admin: 11/01/18 12:55 Dose: 10 ml Documented by: Sodium Chloride (Sodium Chloride Flush Syringe 10 Ml) 10 ml IV PRN PRN PRN Reason: LINE FLUSH Review of Systems Cardiovascular: chest pain, no orthopnea, no palpitations, no rapid/irregular heart beat, no edema, no syncope, no lightheadedness, no shortness of breath Physical Examination Vital Signs Temp Pulse Resp BP Pulse Ox 99.0 F 82 16 166/82 100 11/01/18 04:34 11/01/18 04:34 11/01/18 04:34 11/01/18 04:34 11/01/18 04:34 General appearance: no acute distress HEENT: Positive: PERRL Neck: Positive: neck supple Cardiac: Positive: Reg Rate and Rhythm Lungs: Positive: Decreased Breath Sounds Neuro: Positive: Grossly Intact Abdomen: Positive: Soft Female genitourinary: deferred Skin: Positive: Clear Extremities: Absent: edema Results 11/01/18 10:38 11/01/18 04:56 Cardiac Enzymes 11/01/18 11/01/18 11/01/18 Range/Units 04:56 06:40 12:03 AST 28 (5-40) units/L CK-MB (CK-2) 1.1 1.3 (0.0-4.0) ng/mL Coagulation 11/01/18 Range/Units 10:38 PT 14.2 (12.2-14.9) Sec. INR 1.04 (0.87-1.13) APTT 35.5 (24.2-36.6) Sec. Lipids 11/01/18 Range/Units 04:56 Triglycerides 100 (2-149) mg/dL Cholesterol 97 (50-199) mg/dL HDL Cholesterol 41 (40-59) mg/dL Cholesterol/HDL Ratio 2.36 % CBC 11/01/18 11/01/18 Range/Units 04:56 10:38 WBC 15.3 H (4.5-11.0) K/mm3 RBC 3.88 (3.65-5.03) M/mm3 Hgb 11.8 11.3 (10.1-14.3) gm/dl Hct 34.2 34.3 (30.3-42.9) % Plt Count 286 261 (140-440) K/mm3 Lymph # 1.8 (1.2-5.4) K/mm3 [place] # 0.8 (0.0-0.8) K/mm3 Eos # 0.1 (0.0-0.4) K/mm3 Baso # 0.2 H (0.0-0.1) K/mm3 Comprehensive Metabolic Panel 11/01/18 Range/Units 04:56 Sodium 141 (137-145) mmol/L Potassium 3.3 L (3.6-5.0) mmol/L Chloride 104.5 (98-107) mmol/L Carbon Dioxide 21 L (22-30) mmol/L BUN 25 H (7-17) mg/dL Creatinine 1.1 (0.7-1.2) mg/dL Glucose 106 H (65-100) mg/dL Calcium 8.7 (8.4-10.2) mg/dL AST 28 (5-40) units/L ALT 27 (7-56) units/L Alkaline Phosphatase 168 H (35-129) units/L Total Protein 7.9 (6.3-8.2) g/dL Albumin 3.3 L (3.9-5) g/dL EKG interpretations - Telemetry EKG Rhythm: Sinus Rhythm Assessment and Plan - Patient Problems (1) Chest pain Current Visit: Yes Status: Acute Plan to address problem: Patient's chest pain is atypical, reproducible on palpation of the chest wall, appears musculoskeletal or COSTOCHONDRITIS. Recommendations: Trial of intravenous Toradol for musculoskeletal chest pain. Continue anti-ischemic cardiac therapy including aspirin and Plavix, statins and beta blockers. Beta brian dose will be reduced due to the finding of first- degree AV block on ECG.
[2018-11-01] MEDS: HABITROL TD SCH (16:15)
[2018-11-01] MEDS: PLAVIX PO SCH (16:15)
[2018-11-01] MEDS: APRESOLINE IV PRN ×2 (17:08→18:51)
[2018-11-01] MEDS ORDERED: MIRALAX 3350 PO PRN (18:39)
[2018-11-01] MEDS ORDERED: LEVSIN SL SL PRN (18:39)
[2018-11-01] MEDS ORDERED: PLAVIX PO SCH (19:00)
[2018-11-01] MEDS ORDERED: SODIUM BICARBONATE PO SCH ×2 (20:00)
[2018-11-01] MEDS: FEOSOL PO SCH (21:20)
[2018-11-01] MEDS: LASIX PO SCH (21:21)
[2018-11-01] MEDS: NORVASC PO SCH (21:21)
[2018-11-01] MEDS: COREG PO SCH (21:32)
[2018-11-01] MEDS: DIOVAN PO SCH (21:33)
[2018-11-01] MEDS: SENOKOT PO SCH (21:34)
[2018-11-01] MEDS ORDERED: COREG PO SCH (22:00)
[2018-11-02] MEDS: MORPHINE IV PRN ×3 (02:13→20:28)
[2018-11-02 05:59] LABS: Basophils % (Auto) 0.2 % (0.0-1.8); Eosinophils # (Auto) 0.1 K/mm3 (0.0-0.4); Eosinophils % (Auto) 0.6 % (0.0-4.3); Hematocrit 36.2 % (30.3-42.9); Hemoglobin 11.8 gm/dl (10.1-14.3); Mean Corpuscular HGB Conc 33 % (30-34); Mean Corpuscular Volume 90 fl (79-97); Monocytes # (Auto) 0.6 K/mm3 (0.0-0.8); Monocytes % (Auto) 5.4 % (0.0-7.3); Platelet Count 263 K/mm3 (140-440); Red Blood Count 4.03 M/mm3 (3.65-5.03)
[2018-11-02 06:05] LABS: Calcium 9.3 mg/dL (8.4-10.2)
--- NOTE | 2018-11-02 08:53 | Progress Note ---
Assessment and Plan Chest pain, musculoskeletal ECG is in normal sinus rhythm, first-degree AV block, lateral ST and T-wave abnormality which is unchanged from her previous ECG tracings. No acute changes. Acute renal failure Hx of Aortic aneurysm rupture s/p endovascular repair of aortic psedoaneurysm Hypertension History of DVT s/p IVC filter PVD s/p right AKA History of gastric bypass surgery Tobacco abuse Hx of CAD 07/2018 she was referred to [facility] for coronary bypass evaluation, but turned down for bypass due to multiple comorbidities. As a result, she underwent what she describes as high-risk two-vessel staged coronary intervention presumably to the right coronary artery and the left main/LAD vessels. The details of her coronary interventions are not available for review. Compliant with her dual antiplatelet therapy Recommendations: Trial of intravenous Toradol for musculoskeletal chest pain. Continue medical therapy for coronary artery disease. Otherwise, conservative cardiac management. Subjective Date of service: 11/02/18 Interval history: No cardiac events reported. Currently chest pain free. Objective Vital Signs Temp Pulse Resp BP Pulse Ox 11/02/18 04:06 98.2 F 87 17 145/83 100 11/02/18 03:50 95 11/02/18 02:13 20 11/02/18 02:00 83 11/01/18 23:04 98.6 F 89 16 174/89 97 11/01/18 22:28 98 11/01/18 21:33 90 166/92 11/01/18 21:32 90 166/92 11/01/18 21:22 20 11/01/18 21:21 90 166/92 11/01/18 21:19 90 99 11/01/18 19:28 98.1 F 87 19 200/97 99 11/01/18 18:29 192/96 11/01/18 18:27 80 197/98 99 11/01/18 18:03 83 11/01/18 16:34 97.5 F L 85 16 193/107 97 11/01/18 13:30 97.7 F 86 16 174/94 98 11/01/18 11:57 18 11/01/18 11:31 89 16 174/97 96 11/01/18 11:01 92 H 22 174/97 96 11/01/18 10:00 93 H 25 H 166/92 96 11/01/18 09:00 91 H 27 H 174/97 97 - Physical Examination General: No Apparent Distress HEENT: Positive: PERRL Cardiac: Positive: Reg Rate and Rhythm Neuro: Positive: Grossly Intact Extremities: Absent: edema - Labs and Meds Cardiac Enzymes 11/01/18 Range/Units 12:03 CK-MB (CK-2) 1.3 (0.0-4.0) ng/mL Coagulation 11/01/18 Range/Units 10:38 PT 14.2 (12.2-14.9) Sec. INR 1.04 (0.87-1.13) APTT 35.5 (24.2-36.6) Sec. CBC 11/01/18 11/02/18 Range/Units 10:38 04:41 WBC 11.1 H (4.5-11.0) K/mm3 RBC 4.03 (3.65-5.03) M/mm3 Hgb 11.3 11.8 (10.1-14.3) gm/dl Hct 34.3 36.2 (30.3-42.9) % Plt Count 261 263 (140-440) K/mm3 Lymph # 1.0 L (1.2-5.4) K/mm3 [place] # 0.6 (0.0-0.8) K/mm3 Eos # 0.1 (0.0-0.4) K/mm3 Baso # 0.0 (0.0-0.1) K/mm3 Comprehensive Metabolic Panel 11/02/18 Range/Units 04:41 Sodium 137 (137-145) mmol/L Potassium 3.7 (3.6-5.0) mmol/L Chloride 99.8 (98-107) mmol/L Carbon Dioxide 21 L (22-30) mmol/L BUN 22 H (7-17) mg/dL Creatinine 1.4 H (0.7-1.2) mg/dL Glucose 150 H (65-100) mg/dL Calcium 9.3 (8.4-10.2) mg/dL
[2018-11-02] MEDS: NORVASC PO SCH (09:31)
[2018-11-02] MEDS: PROCARDIA XL PO SCH ×2 (09:48→19:22)
[2018-11-02] MEDS: SENOKOT PO SCH ×3 (09:49→21:15)
[2018-11-02] MEDS: FEOSOL PO SCH ×2 (09:49→21:22)
[2018-11-02] MEDS: DITROPAN XL PO SCH (09:49)
[2018-11-02] MEDS: PLAVIX PO SCH (09:49)
[2018-11-02] MEDS: DIOVAN PO SCH ×3 (09:49→21:24)
[2018-11-02] MEDS: COREG PO SCH ×3 (09:50→21:24)
[2018-11-02] MEDS: LASIX PO SCH (09:50)
[2018-11-02] MEDS: PROTONIX PO SCH (09:51)
[2018-11-02] MEDS: SODIUM CHLORIDE FLUSH SYRINGE 10 ML IV SCH ×2 (09:52→21:21)
[2018-11-02] MEDS ORDERED: NON-FORMULARY (Oxybutynin Chloride [Ditropan Xl] 10 MG) PO SCH (10:00)
[2018-11-02] MEDS: LOVENOX SUB-Q SCH (10:04)
[2018-11-02] MEDS: HALFPRIN EC PO SCH (10:04)
[2018-11-02] MEDS: PERCOCET 5/325 PO PRN (12:55)
--- NOTE | 2018-11-02 14:05 | Progress Note ---
Assessment and Plan Chest pain, - likely musculoskeletal - ECG is in normal sinus rhythm, first-degree AV block, - cardiology recommended iv toradol for another 24-48h Acute renal failure/vasomotor nephropathy - hold lasix, monitor BMP Hx of Aortic aneurysm rupture s/p endovascular repair of aortic psedoaneurysm, stable Hypertension, uncontrolled - resumed home meds Hx of CAD - s/p PCI on 07/2018 - cont asp/plavix/statin History of DVT s/p IVC filter PVD s/p right AKA History of gastric bypass surgery - supportive care Tobacco abuse, counseled for quit Possible d/c tomorrow am if clears by cardiology and renal function stable Brief History: 68 y/o AAF with h/p PVD s/p AKA, CAD s/p PCI, Hx of Aortic aneurysm rupture s/p endovascular repair, HTN presented with chest pain. Subjective Date of service: 11/02/18 Interval history: Patient seen and examined c/o intermittent chest pain denies SOB Cr slightly worse today Objective - Constitutional Vitals: Vital Signs - 12hr 11/02/18 11/02/18 11/02/18 02:13 03:50 04:06 Temperature 98.2 F Pulse Rate 87 Respiratory 20 17 Rate Blood Pressure 145/83 O2 Sat by Pulse 95 100 Oximetry 11/02/18 11/02/18 11/02/18 08:13 09:31 12:55 Temperature 98.3 F Pulse Rate Respiratory 18 18 Rate Blood Pressure 153/77 153/77 O2 Sat by Pulse Oximetry General appearance: Present: no acute distress - EENT Eyes: PERRL, EOM intact ENT: hearing intact, clear oral mucosa Ears: bilateral: normal - Neck Neck: supple, normal ROM - Respiratory Respiratory effort: normal Respiratory: bilateral: CTA - Cardiovascular Rhythm: regular Heart Sounds: Present: S1 & S2. Absent: gallop, rub Extremities: pulses intact, No edema, normal color, Full ROM - Gastrointestinal General gastrointestinal: Present: soft, non-tender, non-distended, normal bowel sounds - Integumentary Integumentary: clear, warm, dry - Musculoskeletal Musculoskeletal: strength equal bilaterally, other (right AKA) - Neurologic Neurologic: moves all extremities - Psychiatric Psychiatric: memory intact, appropriate mood/affect, intact judgment & insight - Labs CBC & Chem 7: 11/02/18 04:41 11/02/18 04:41 Labs: Abnormal lab results 11/01/18 11/02/18 11/02/18 Range/Units 14:00 04:41 04:41 WBC 11.1 H (4.5-11.0) K/mm3 RDW 19.0 H (13.2-15.2) % Lymph % (Auto) 9.0 L (13.4-35.0) % Lymph # 1.0 L (1.2-5.4) K/mm3 Seg Neutrophils % 84.8 H (40.0-70.0) % Seg Neutrophils # 9.4 H (1.8-7.7) K/mm3 Carbon Dioxide 21 L (22-30) mmol/L BUN 22 H (7-17) mg/dL Creatinine 1.4 H (0.7-1.2) mg/dL Glucose 150 H (65-100) mg/dL Urine WBC (Auto) 28.0 H (0.0-6.0) /HPF U Epithel Cells (Auto) 14.0 H (0-13.0) /HPF
[2018-11-02] MEDS: HABITROL TD SCH (15:26)
[2018-11-02] MEDS: HEPARIN SUB-Q SCH (21:14)
[2018-11-03 05:34] LABS: Hematocrit 34.6 % (30.3-42.9); Hemoglobin 11.4 gm/dl (10.1-14.3)
[2018-11-03 05:53] LABS: Calcium 9.1 mg/dL (8.4-10.2)
[2018-11-03] MEDS: MORPHINE IV PRN (05:59)
[2018-11-03] MEDS ORDERED: LEVAQUIN PO SCH (07:00)
[2018-11-03 07:49] VITALS: BP 179/87
[2018-11-03] MEDS: DIOVAN PO SCH ×2 (09:33→09:51)
[2018-11-03] MEDS: FEOSOL PO SCH (09:33)
[2018-11-03] MEDS: HALFPRIN EC PO SCH (09:34)
[2018-11-03] MEDS: SENOKOT PO SCH (09:34)
[2018-11-03] MEDS: NORVASC PO SCH (09:34)
[2018-11-03] MEDS: PROCARDIA XL PO SCH ×2 (09:34→09:43)
[2018-11-03] MEDS: COREG PO SCH ×2 (09:34→09:42)
[2018-11-03] MEDS: PLAVIX PO SCH (09:34)
[2018-11-03] MEDS: PROTONIX PO SCH (09:34)
[2018-11-03] MEDS: DITROPAN XL PO SCH (09:34)
[2018-11-03] MEDS: HEPARIN SUB-Q SCH (09:35)
[2018-11-03] MEDS: SODIUM CHLORIDE FLUSH SYRINGE 10 ML IV SCH (09:36)
[2018-11-03] MEDS: HABITROL TD SCH (09:36)
--- NOTE | 2018-11-03 09:59 | Progress Note ---
Assessment and Plan Chest pain, musculoskeletal ECG is in normal sinus rhythm, first-degree AV block, lateral ST and T-wave abnormality which is unchanged from her previous ECG tracings. No acute changes. Acute renal failure Hx of Aortic aneurysm rupture s/p endovascular repair of aortic psedoaneurysm Hypertension History of DVT s/p IVC filter PVD s/p right AKA History of gastric bypass surgery Tobacco abuse Hx of CAD 07/2018 she was referred to [facility] for coronary bypass evaluation, but turned down for bypass due to multiple comorbidities. As a result, she underwent what she describes as high-risk two-vessel staged coronary intervention presumably to the right coronary artery and the left main/LAD vessels. The details of her coronary interventions are not available for review. Compliant with her dual antiplatelet therapy Recommendations: Continue medical therapy for coronary artery disease. Otherwise, conservative cardiac management. Subjective Date of service: 11/03/18 Interval history: No cardiac events reported. BP not optimal. It's reported the patient is refusing several blood pressure medications as ordered. Objective Vital Signs Temp Pulse Resp BP Pulse Ox 11/03/18 07:47 98.5 F 81 16 179/87 97 11/03/18 04:58 98.8 F 77 18 176/82 93 11/03/18 00:10 98.4 F 81 18 176/82 92 11/02/18 20:50 94 H 11/02/18 20:11 22 11/02/18 19:44 98.8 F 89 18 163/84 91 11/02/18 16:58 98.7 F 78 18 171/86 100 11/02/18 15:27 18 11/02/18 12:58 98.4 F 18 180/90 11/02/18 12:55 18 11/02/18 10:00 83 - Physical Examination General: No Apparent Distress HEENT: Positive: PERRL Cardiac: Positive: Reg Rate and Rhythm Neuro: Positive: Grossly Intact Extremities: Absent: edema - Labs and Meds CBC 11/03/18 Range/Units 05:08 Hgb 11.4 (10.1-14.3) gm/dl Hct 34.6 (30.3-42.9) % Plt Count 252 (140-440) K/mm3 Comprehensive Metabolic Panel 11/03/18 Range/Units 05:08 Sodium 135 L (137-145) mmol/L Potassium 3.5 L (3.6-5.0) mmol/L Chloride 99.5 (98-107) mmol/L Carbon Dioxide 22 (22-30) mmol/L BUN 27 H (7-17) mg/dL Creatinine 1.2 (0.7-1.2) mg/dL Glucose 103 H (65-100) mg/dL Calcium 9.1 (8.4-10.2) mg/dL
[2018-11-03] MEDS ORDERED: LEVAQUIN 750MG/150ML 750 MG/150 ML BAG IV SCH (10:00)
--- NOTE | 2018-11-03 12:14 | Discharge Summary ---
Providers - Providers Date of Admission: 11/01/18 06:08 Date of discharge: 11/03/18 Attending physician: KENNEDI THOMPSON 11/01/18 06:08 Consult to Physician [CONS] Routine Comment: Consulting Provider: JAYLAN PERRY Physician Instructions: Reason For Exam: cp Primary care physician: [employer] Hospitalization Condition: Stable Pertinent studies: CXR Abdomen/pelvis CT Hospital course: Brief History: 68 y/o AAF with h/p PVD s/p AKA, CAD s/p PCI, Hx of Aortic aneury sm rupture s/p endovascular repair, HTN presented with chest pain. She was monitored with serial CE and EKG. ECG showed normal sinus rhythm, first-degree AV block, lateral ST and T-wave abnormality which is unchanged from her previous ECG tracings, No acute changes. Chest pain likely musculoskeletal, treated with iv toradol as needed. Her left thorax chest wall pain has completely resolved, no further tenderness following intravenous Toradol. Cardiology cleared for discharge, and recommended to continue her outpatient cardiac medical management, except a reduction in carvedilol to 6.25 mg twice a day and response to the finding of first-degree AV block on ECG. She was then discharged home in stable condition. Discharge diagnosis: Chest pain, - likely musculoskeletal/costrochondritis, treated with iv toradol as needed - ECG is in normal sinus rhythm, first-degree AV block, lateral ST and T-wave abnormality which is unchanged from her previous ECG tracings, No acute changes. Will f/u with cardiology outpt. Acute renal failure/vasomotor nephropathy - hold lasix, monitor BMP Hx of Aortic aneurysm rupture s/p endovascular repair of aortic psedoaneurysm, stable Hypertension, uncontrolled - resumed home meds Hx of CAD - s/p PCI on 07/2018 - cont asp/plavix/statin History of DVT s/p IVC filter PVD s/p right AKA History of gastric bypass surgery - supportive care Tobacco abuse, counseled for quit D/c home in stable condition. Disposition: [id number] HOME UNDER HOME HL Time spent for discharge: 34 minutes Core Measure Documentation - Palliative Care Palliative Care/ Comfort Measures: Not Applicable - Core Measures Any of the following diagnoses?: history only Exam - Physical Exam Narrative exam: General appearance: Present: no acute distress - EENT Eyes: PERRL, EOM intact ENT: hearing intact, clear oral mucosa Ears: bilateral: normal - Neck Neck: supple, normal ROM - Respiratory Respiratory effort: normal Respiratory: bilateral: CTA - Cardiovascular Rhythm: regular Heart Sounds: Present: S1 & S2. Absent: gallop, rub Extremities: pulses intact, No edema, normal color, Full ROM - Gastrointestinal General gastrointestinal: Present: soft, non-tender, non-distended, normal bowel sounds - Integumentary Integumentary: clear, warm, dry - Musculoskeletal Musculoskeletal: strength equal bilaterally, other (right AKA) - Neurologic Neurologic: moves all extremities - Psychiatric Psychiatric: memory intact, appropriate mood/affect, intact judgment & insight - Constitutional Vitals: Temp Pulse Resp BP Pulse Ox 98.5 F 77 16 179/87 97 11/03/18 07:47 11/03/18 10:00 11/03/18 07:47 11/03/18 07:47 11/03/18 10:00 Plan Activity: fall precautions Weight Bearing Status: Non-Weight Bearing Diet: low fat, low salt Special Instructions: record daily BP diary Follow up with: PRIMARY CARE,MD [Primary Care Provider] - 7 Days Forms: Discharge Signature Page Prescriptions: Carvedilol [Coreg] 6.25 mg PO BID #60 tablet oxyCODONE /ACETAMINOPHEN [Percocet 5/325 mg] 1 tab PO Q6H PRN #10 tablet PRN Reason: Pain, Moderate (4-6)
[2018-11-03] MEDS ORDERED: K-DUR PO ONE (12:56)
== END 2018-11-03 15:25 | disposition home health service (06) | DRG 304 ==
LOC: SUATTDRO 04:24 → ED 04:24 → 4A 06:08
PROVIDERS: ADMIT Internal Medicine; ATTEND Internal Medicine
DX: I16.0 Hypertensive urgency (principal); N17.0 Acute kidney failure with tubular necrosis; R65.10 Systemic inflammatory response syndrome (SIRS) of non-infectious origin without acute organ dysfunction; R07.89 Other chest pain; N18.3 Chronic kidney disease, stage 3 (moderate); I12.9 Hypertensive chronic kidney disease with stage 1 through stage 4 chronic kidney disease, or unspecified chronic kidney disease; J44.9 Chronic obstructive pulmonary disease, unspecified; K21.9 Gastro-esophageal reflux disease without esophagitis; F17.210 Nicotine dependence, cigarettes, uncomplicated; Z89.611 Acquired absence of right leg above knee; Z86.718 Personal history of other venous thrombosis and embolism; Z79.82 Long term (current) use of aspirin; Z79.899 Other long term (current) drug therapy; Z88.8 Allergy status to other drugs, medicaments and biological substances; Z88.2 Allergy status to sulfonamides; Z95.5 Presence of coronary angioplasty implant and graft; Z82.49 Family history of ischemic heart disease and other diseases of the circulatory system; Z71.6 Tobacco abuse counseling
CPT/HCPCS: 36415; 71045; 74176; 80048; 80053; 80061; 81001; 82550; 82553; 84484; 85014; 85018; 85025; 85049; 85610; 85730; 87040; 93005; 93010; 94760; 96365; 96375; 96376; 99406; G0378; A9270-GY; J0360; J1644; J1650; J1885; J1956; J2270; J2405